=== PATIENT | female | born 2000 | race Caucasian/White ===

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

== ENCOUNTER 2019-02-25 20:13 | Emergency (ER) | payer OTHER ==
[2019-02-25 20:24] VITALS: RESP 18
[2019-02-25] MEDS ORDERED: KETOROLAC 30 MG/ML 1 ML VIAL IM STA (20:52)
[2019-02-25 21:10] LABS: Appearance,Urine Clear (Clear); Bilirubin,Urine Negative (Negative); Blood,Urine Moderate (Negative); Color,Urine Yellow; Glucose,Urine (UA) Negative (Negative); Ketones,Urine Negative (Negative); Leukocyte Esterase,Urine Negative (Negative); Mucus,Urine Many /hpf; Nitrite,Urine Negative (Negative); PH, Urine 5.5 (5.0-8.0); Protein,Urine Trace (Negative); RBC,Urine 19 /hpf (0-5); Specific Gravity,Urine 1.026 (1.001-1.035); Squamous Epithelial Cell,Urine <1 /hpf (0-4); Urobilinogen,Urine <2.0 mg/dL (<2.0); WBC,Urine 4 /hpf (0-5)
--- NOTE | 2019-02-25 21:38 | ED ---
General Adult HPI - General Chief complaint: ENT Stated complaint: Sore throat Time Seen by Provider: 02/25/19 20:32 Source: patient Mode of arrival: ambulatory Limitations: no limitations - History of Present Illness Initial comments: 18-year-old female patient presents to the emergency department today for evaluation of low back pain and sore throat. Patient states that she has been having increased low back pain over the last 2 weeks. Patient states it hurts to bend, walk, or sit for long periods. Patient states the pain is all across her low back. Patient states that she has had pain in the back in the past with . Patient denies any radiation of the pain down her legs. Denies any numbness or tingling to the lower extremities. Denies any saddle anesthesia or loss of bowel or bladder control. She denies any hematuria, dysuria, urinary frequency, urinary urgency. Denies any fever or chills. Denies abdominal pain with this. States that she did develop sore throat a couple of days ago. States that this morning she noticed that the right tonsil was enlarged and there was white exudate present. She denies any fever or chills with this. Reports painful swallowing but no difficulty. Denies trismus. Denies any nasal congestion or drainage. Denies cough. - Related Data Home Medications Medication Instructions Recorded Confirmed Hmx-[id number] Acid 1 cap PO DAILY 02/26/18 09/18/18 [-U Capsule (formulary)] Acetaminophen [Tylenol] 650 mg PO Q4H 09/08/18 09/18/18 Previous Rx's Medication Instructions Recorded Ibuprofen [Motrin] 600 mg PO Q6HR PRN #60 tab 09/19/18 Azithromycin [Zithromax] 500 mg PO DAILY 4 Days #4 tab 02/25/19 Naproxen [EC-Naprosyn] 500 mg PO BID PRN #30 tablet. 02/25/19 Allergies Allergy/AdvReac Type Severity Reaction Status Date / Time No Known Allergies Allergy Verified 02/25/19 20:24 Review of Systems ROS Statement: Those systems with pertinent positive or pertinent negative responses have been documented in the HPI. ROS Other: All systems not noted in ROS Statement are negative. Past Medical History Past Medical History: No Reported History History of Any Multi-Drug Resistant Organisms: None Reported Past Surgical History: No Surgical Hx Reported Additional Past Surgical History / Comment(s): wisdom teeth Past Anesthesia/Blood Transfusion Reactions: No Reported Reaction Additional Past Anesthesia/Blood Transfusion Reaction / Comment(s): none Past Psychological History: Anxiety Smoking Status: Current every day smoker Past Alcohol Use History: None Reported Past Drug Use History: None Reported - Past Family History Father Family Medical History: No Reported History Brother(s) Additional Family Medical History / Comment(s): pulmonary stenosis Sister(s) Family Medical History: No Reported History Additional Family Medical History / Comment(s): down syndrome General Exam Limitations: no limitations General appearance: alert, in no apparent distress, other (This is a well- developed, well-nourished adult female patient in no acute distress. Vital signs upon presentation are temperature 98.4F, pulse 89, respirations 18, blood pressure 122/69, pulse ox 99% on room air.) Eye exam: Present: normal appearance, PERRL, EOMI. Absent: scleral icterus, conjunctival injection, periorbital swelling ENT exam: Present: mucous membranes moist, TM's normal bilaterally. Absent: normal exam, normal oropharynx (Right tonsillar hypertrophy, exudate noted.) Respiratory exam: Present: normal lung sounds bilaterally. Absent: respiratory distress, wheezes, rales, rhonchi, stridor Cardiovascular Exam: Present: regular rate, normal rhythm, normal heart sounds. Absent: systolic murmur, diastolic murmur, rubs, gallop, clicks GI/Abdominal exam: Present: soft, normal bowel sounds. Absent: distended, tenderness, guarding, rebound, rigid Extremities exam: Present: normal inspection, full ROM, normal capillary refill, other (Skin to the lower extremities is pink, warm, and dry. Cap refills less than 3 seconds. Pedal and posttibial pulses are 2+ and equal bilaterally.). Absent: tenderness, pedal edema, joint swelling, calf tenderness Back exam: Present: normal inspection. Absent: vertebral tenderness Neurological exam: Present: alert, oriented X3, CN II-XII intact, other (Strength to the lower extremities is 5/5.) Psychiatric exam: Present: normal affect, normal mood Skin exam: Present: warm, dry, intact, normal color. Absent: rash Course Vital Signs 02/25/19 02/25/19 20:21 22:43 Temperature 98.4 F 98.2 F Pulse Rate 89 78 Respiratory 18 18 Rate Blood Pressure 122/69 107/78 O2 Sat by Pulse 99 100 Oximetry Medical Decision Making - Medical Decision Making 18-year-old female patient presents to the emergency department today for evaluation of low back pain and sore throat. Physical examination did reveal right tonsillar hypertrophy with exudate. Tender lymph nodes. Lower back examination is unremarkable. She is neurologically intact. No concerning symptoms for cauda equina. We did send heterophile which was negative, EBV panel was sent as well as symptoms started 2 days ago. Strep screen was negat andressa. We'll treat with azithromycin for tonsillitis. She is given naproxen for back pain. She does report improvement of both throat and back pain with administration of Toradol here in the department. She is instructed to follow- up with her primary care physician for recheck in 1-2 days. Return parameters were discussed in detail. She verbalizes understanding and agrees with this plan. - Lab Data Lab Results 02/25/19 02/25/19 02/25/19 Range/Units 20:50 20:50 20:50 Urine Color Yellow Urine Appearance Clear (Clear) Urine pH 5.5 (5.0-8.0) Ur Specific [place] 1.026 (1.001-1.035) Urine Protein Trace H (Negative) Urine Glucose (UA) Negative (Negative) Urine Ketones Negative (Negative) Urine Blood Moderate H (Negative) Urine Nitrite Negative (Negative) Urine Bilirubin Negative (Negative) Urine Urobilinogen <2.0 (<2.0) mg/dL Ur Leukocyte Esterase Negative (Negative) Urine RBC 19 H (0-5) /hpf Urine WBC 4 (0-5) /hpf Ur Squamous Epith Cells <1 (0-4) /hpf Urine Mucus Many H (None) /hpf Urine HCG, Qual Not Detected (Not Detectd) Heterophile Antibody (Negative) Group A Strep Rapid Negative (Negative) 02/25/19 Range/Units 22:15 Urine Color Urine Appearance (Clear) Urine pH (5.0-8.0) Ur Specific [place] (1.001-1.035) Urine Protein (Negative) Urine Glucose (UA) (Negative) Urine Ketones (Negative) Urine Blood (Negative) Urine Nitrite (Negative) Urine Bilirubin (Negative) Urine Urobilinogen (<2.0) mg/dL Ur Leukocyte Esterase (Negative) Urine RBC (0-5) /hpf Urine WBC (0-5) /hpf Ur Squamous Epith Cells (0-4) /hpf Urine Mucus (None) /hpf Urine HCG, Qual (Not Detectd) Heterophile Antibody Negative (Negative) Group A Strep Rapid (Negative) Disposition Clinical Impression: Pharyngitis, Low back pain Disposition: HOME SELF-CARE Condition: Good Instructions (If sedation given, give patient instructions): Pharyngitis (ED), Acute Low Back Pain (ED), Lower Back Exercises (ED) Additional Instructions: Apply warm moist heat to the low back, 20 minutes at a time. Do the exercises daily. Complete antibiotic prescription in full for throat. Follow up with your primary care physician for recheck in 1-2 days. Return to the emergency department immediately for any new, worsening, or concerning symptoms. Prescriptions: Naproxen [EC-Naprosyn] 500 mg PO BID PRN #30 tablet. PRN Reason: Pain Azithromycin [Zithromax] 500 mg PO DAILY 4 Days #4 tab Is patient prescribed a controlled substance at d/c from ED?: No Referrals: None,Stated [Primary Care Provider] - 1-2 days Time of Disposition: 22:13
[2019-02-25] MEDS ORDERED: AZITHROMYCIN 500 MG TAB PO STA (21:44)
[2019-02-25 22:46] VITALS: BP 107/78; PULSE 78; TEMP 98.2
[2019-02-26 11:47] LABS: EBV-EA (IgG) <0.2 AI; EBV-EBNA(IgG) >8.0 AI; EBV-VCA (IgG) >8.0 AI; EBV-VCA (IgM) <0.2 AI
== END 2019-02-25 22:43 | disposition home or self-care (01) ==
LOC: EC 20:13
DX: J02.9 Acute pharyngitis, unspecified (principal); M54.5 Low back pain; J35.1 Hypertrophy of tonsils; F17.200 Nicotine dependence, unspecified, uncomplicated
CPT/HCPCS: 99283; 96372; 36415; 86665 ×2; 86663; 86308; 81001; 81025; 86664; 87081; 87430; J1885

== ENCOUNTER 2019-11-19 16:06 | Emergency (ER) | payer OTHER ==
[2019-11-19 16:40] VITALS: TEMP 98.7
[2019-11-19] MEDS ORDERED: MECLIZINE 12.5 MG TAB PO STA (17:17)
[2019-11-19 17:28] LABS: Appearance,Urine Clear (Clear); Bacteria,Urine Rare /hpf; Bilirubin,Urine Negative (Negative); Blood,Urine Negative (Negative); Color,Urine Colorless; Glucose,Urine (UA) Negative (Negative); Ketones,Urine Negative (Negative); Leukocyte Esterase,Urine Moderate (Negative); Nitrite,Urine Negative (Negative); PH, Urine 7.5 (5.0-8.0); Protein,Urine Negative (Negative); Specific Gravity,Urine 1.004 (1.001-1.035); Squamous Epithelial Cell,Urine 1 /hpf (0-4); Urobilinogen,Urine <2.0 mg/dL (<2.0); WBC,Urine 3 /hpf (0-5)
--- NOTE | 2019-11-19 17:45 | ED ---
Dizziness HPI - General Chief Complaint: Dizziness Stated Complaint: dizziness Time Seen by Provider: 11/19/19 16:43 Source: patient Mode of arrival: ambulatory Limitations: no limitations - History of Present Illness Initial Comments: Patient is a 19-year-old female presenting to the emergency department with a chief complaint of dehydration and dizziness. Patient reports this occurred about 2 hours prior to arrival. Patient reports she works at [employer] and developed a gradual onset of dizziness where the room was spinning around her. States she also feels dehydrated. Patient denies any light headaches, visual changes, nausea vomiting chest pain or shortness of breath. Patient denies previous history of vertigo. - Related Data Home Medications Medication Instructions Recorded Confirmed Lvd-Asua-Uymdm Acid 1 cap PO DAILY 02/26/18 09/18/18 [-U Capsule (formulary)] Acetaminophen [Tylenol] 650 mg PO Q4H 09/08/18 09/18/18 Previous Rx's Medication Instructions Recorded Ibuprofen [Motrin] 600 mg PO Q6HR PRN #60 tab 09/19/18 Azithromycin [Zithromax] 500 mg PO DAILY 4 Days #4 tab 02/25/19 Naproxen [EC-Naprosyn] 500 mg PO BID PRN #30 tablet. 02/25/19 Meclizine [Antivert] 25 mg PO TID PRN #15 tab 11/19/19 Allergies Allergy/AdvReac Type Severity Reaction Status Date / Time morphine Allergy Unknown Verified 11/19/19 16:40 Review of Systems ROS Statement: Those systems with pertinent positive or pertinent negative responses have been documented in the HPI. ROS Other: All systems not noted in ROS Statement are negative. Past Medical History Past Medical History: No Reported History History of Any Multi-Drug Resistant Organisms: None Reported Past Surgical History: No Surgical Hx Reported Additional Past Surgical History / Comment(s): wisdom teeth Past Anesthesia/Blood Transfusion Reactions: No Reported Reaction Additional Past Anesthesia/Blood Transfusion Reaction / Comment(s): none Past Psychological History: Anxiety Smoking Status: Current every day smoker Past Alcohol Use History: None Reported Past Drug Use History: None Reported - Past Family History Father Family Medical History: No Reported History Brother(s) Additional Family Medical History / Comment(s): pulmonary stenosis Sister(s) Family Medical History: No Reported History Additional Family Medical History / Comment(s): down syndrome General Exam Limitations: no limitations General appearance: alert, in no apparent distress Head exam: Present: atraumatic, normocephalic, normal inspection Eye exam: Present: normal appearance, PERRL, EOMI, nystagmus (Lateral nystagmus) Pupils: Present: normal accommodation ENT exam: Present: normal exam, normal oropharynx, mucous membranes moist Neck exam: Present: normal inspection, full ROM Respiratory exam: Present: normal lung sounds bilaterally. Absent: respiratory distress, wheezes Cardiovascular Exam: Present: regular rate, normal rhythm, normal heart sounds External exam: Present: normal external exam, erythema Extremities exam: Present: normal inspection, full ROM Back exam: Present: normal inspection, full ROM Neurological exam: Present: alert, oriented X3 Psychiatric exam: Present: normal affect, normal mood Skin exam: Present: warm, dry, intact, normal color Course Vital Signs 11/19/19 11/19/19 16:37 18:18 Temperature 98.7 F Pulse Rate 74 54 L Respiratory 18 16 Rate Blood Pressure 122/77 116/72 O2 Sat by Pulse 100 100 Oximetry Medical Decision Making - Medical Decision Making patient is a 19-year-old female presenting to the emergency department with the chief complaint dehydration and dizziness. I performed the Calera-Hallpike maneuver which drastically increased her dizziness with slight nausea. EKG is unremarkable. UA is negative. Urine negative. I suspect the patient has vertigo. Patient was given 50 mg of Antivert with improvement in symptoms. Patient will be discharged with Antivert. She was advised to follow-up with her primary care. Return parameters thoroughly discussed the patient was understanding and agreeable. Case discussed with physician. - Lab Data Lab Results 11/19/19 11/19/19 11/19/19 Range/Units 17:07 17:07 18:32 POC Glucose (mg/dL) 77 (75-99) mg/dL POC Glu [employer] Kendra Melara Urine Color Colorless Urine Appearance Clear (Clear) Urine pH 7.5 (5.0-8.0) Ur Specific [place] 1.004 (1.001-1.035) Urine Protein Negative (Negative) Urine Glucose (UA) Negative (Negative) Urine Ketones Negative (Negative) Urine Blood Negative (Negative) Urine Nitrite Negative (Negative) Urine Bilirubin Negative (Negative) Urine Urobilinogen <2.0 (<2.0) mg/dL Ur Leukocyte Esterase Moderate H (Negative) Urine WBC 3 (0-5) /hpf Ur Squamous Epith Cells 1 (0-4) /hpf Urine Bacteria Rare H (None) /hpf Urine HCG, Qual Not Detected (Not Detectd) - EKG Data EKG Comments: Says arrhythmia Ventricular rate 66, WI 124, QRS 90, QTC 415. Disposition Clinical Impression: Dizziness, Vertigo Disposition: HOME SELF-CARE Condition: Stable Instructions (If sedation given, give patient instructions): Vertigo (DC) Additional Instructions: Take prescribed medication as directed. Follow-up with your primary care. Return to emergency department if symptoms worsen. Prescriptions: Meclizine [Antivert] 25 mg PO TID PRN #15 tab PRN Reason: Vertigo Is patient prescribed a controlled substance at d/c from ED?: No Referrals: None,Stated [Primary Care Provider] - 1-2 days Time of Disposition: 18:14
[2019-11-19 18:21] VITALS: BP 116/72; PULSE 54; RESP 16
[2019-11-19 18:47] LABS: Glucose,Whole Blood 77 mg/dL (75-99)
== END 2019-11-19 18:33 | disposition home or self-care (01) ==
LOC: EC 16:06
DX: R42 Dizziness and giddiness (principal); F17.200 Nicotine dependence, unspecified, uncomplicated; Z88.5 Allergy status to narcotic agent
CPT/HCPCS: 36415; 81001; 81025; 93005; 99284

== ENCOUNTER 2019-12-09 09:06 | Emergency (ER) | payer OTHER ==
[2019-12-09 09:11] VITALS: TEMP 98
[2019-12-09] MEDS ORDERED: SODIUM CHLORIDE 0.9% 1,000 ML IV STA (09:32)
[2019-12-09] MEDS ORDERED: SODIUM CHLORIDE 0.9% 500 ML 500 ML IV STA (09:32)
[2019-12-09] MEDS ORDERED: MECLIZINE 12.5 MG TAB PO STA (09:33)
[2019-12-09] MEDS ORDERED: ONDANSETRON 4 MG/2 ML VIAL IVP STA (09:33)
--- NOTE | 2019-12-09 09:37 | ED ---
General Adult HPI - General Chief complaint: Dizziness Stated complaint: syncope Time Seen by Provider: 12/09/19 09:14 Source: patient, RN notes reviewed Mode of arrival: wheelchair Limitations: no limitations - History of Present Illness Initial comments: This a 19-year-old female presents emergency Department chief complaint of nausea, dizziness. Patient states it started yesterday while she stood up getting out of her vehicle. She states she felt she has not passed out. She stumbled to the ground but did not strike her head. Patient has a history of vertigo in which she is received medication for. Patient does not have a current primary care physician. Denies any chest pain or sniffing shortness of breath no abdominal plain to the inside nausea. Patient denies fever, chills, URI symptoms. Patient denies taking any other current medications. - Related Data Home Medications Medication Instructions Recorded Confirmed Hzf-Mmxe-Sofbh Acid 1 cap PO DAILY 02/26/18 09/18/18 [-U Capsule (formulary)] Acetaminophen [Tylenol] 650 mg PO Q4H 09/08/18 09/18/18 Previous Rx's Medication Instructions Recorded Ibuprofen [Motrin] 600 mg PO Q6HR PRN #60 tab 09/19/18 Azithromycin [Zithromax] 500 mg PO DAILY 4 Days #4 tab 02/25/19 Naproxen [EC-Naprosyn] 500 mg PO BID PRN #30 tablet. 02/25/19 Meclizine [Antivert] 25 mg PO TID PRN #15 tab 11/19/19 Allergies Allergy/AdvReac Type Severity Reaction Status Date / Time morphine Allergy Unknown Verified 12/09/19 09:11 Review of Systems ROS Statement: Those systems with pertinent positive or pertinent negative responses have been documented in the HPI. ROS Other: All systems not noted in ROS Statement are negative. Past Medical History Past Medical History: No Reported History History of Any Multi-Drug Resistant Organisms: None Reported Past Surgical History: No Surgical Hx Reported Additional Past Surgical History / Comment(s): wisdom teeth Past Anesthesia/Blood Transfusion Reactions: No Reported Reaction Additional Past Anesthesia/Blood Transfusion Reaction / Comment(s): none Past Psychological History: Anxiety Smoking Status: Former smoker Past Alcohol Use History: None Reported Past Drug Use History: None Reported - Past Family History Father Family Medical History: No Reported History Brother(s) Additional Family Medical History / Comment(s): pulmonary stenosis Sister(s) Family Medical History: No Reported History Additional Family Medical History / Comment(s): down syndrome General Exam Limitations: no limitations General appearance: alert, in no apparent distress Head exam: Present: atraumatic, normocephalic, normal inspection Eye exam: Present: normal appearance, PERRL, EOMI. Absent: scleral icterus, conjunctival injection, periorbital swelling ENT exam: Present: normal exam, normal oropharynx, mucous membranes moist Neck exam: Present: normal inspection, full ROM. Absent: tenderness, meningismus, lymphadenopathy Respiratory exam: Present: normal lung sounds bilaterally. Absent: respiratory distress, wheezes, rales, rhonchi, stridor Cardiovascular Exam: Present: normal rhythm, bradycardia, normal heart sounds. Absent: systolic murmur, diastolic murmur, rubs, gallop, clicks GI/Abdominal exam: Present: soft, normal bowel sounds. Absent: distended, tenderness, guarding, rebound, rigid Neurological exam: Present: alert, oriented X3, CN II-XII intact, reflexes normal. Absent: motor sensory deficit Skin exam: Present: warm, dry, intact, normal color. Absent: rash Course Vital Signs 12/09/19 09:09 Temperature 98.0 F Pulse Rate 58 L Respiratory 18 Rate Blood Pressure 107/70 O2 Sat by Pulse 100 Oximetry EKG Findings - EKG Comments: EKG Findings:: EKG performed at 9:25 sinus bradycardia rate of 56 GA 128 QRS 88 QT status QTC 4:30/422 - EKG Results: EKG: interpreted by JEN Medical Decision Making - Medical Decision Making 19-year-old female presented for dizziness she has chronic issues with this. Patient was hydrated, given Antivert feels improved. Labs unremarkable. Patient be discharged. - Lab Data Result diagrams: 12/09/19 09:45 12/09/19 09:45 Lab Results 12/09/19 12/09/19 12/09/19 Range/Units 09:45 09:45 09:45 WBC 4.8 (4.0-11.0) k/uL RBC 4.26 (3.80-5.40) m/uL Hgb 11.7 (11.4-16.0) gm/dL Hct 37.4 (34.0-46.0) % MCV 87.7 (80.0-100.0) fL MCH 27.4 (25.0-35.0) pg MCHC 31.2 (31.0-37.0) g/dL RDW 14.9 (11.5-15.5) % Plt Count 181 (150-450) k/uL Neutrophils % 55 % Lymphocytes % 31 % Monocytes % 7 % Eosinophils % 1 % Basophils % 1 % Neutrophils # 2.7 (1.3-7.7) k/uL Lymphocytes # 1.5 (1.0-4.8) k/uL Monocytes # 0.4 (0-1.0) k/uL Eosinophils # 0.1 (0-0.7) k/uL Basophils # 0.1 (0-0.2) k/uL Hypochromasia Slight Sodium (137-145) mmol/L Potassium (3.5-5.1) mmol/L Chloride (98-107) mmol/L Carbon Dioxide (22-30) mmol/L Anion Gap mmol/L BUN (7-17) mg/dL Creatinine (0.52-1.04) mg/dL Est GFR (CKD-EPI)AfAm (>60 ml/min/1.73 sqM) Est GFR (CKD-EPI)NonAf (>60 ml/min/1.73 sqM) Glucose (74-99) mg/dL Calcium (8.4-10.2) mg/dL Total Bilirubin (0.2-1.3) mg/dL AST (14-36) U/L ALT (4-34) U/L Alkaline Phosphatase (38-126) U/L Total Protein (6.3-8.2) g/dL Albumin (3.5-5.0) g/dL Urine Color Nicole Urine Appearance Clear (Clear) Urine pH 6.0 (5.0-8.0) Ur Specific [place] 1.030 (1.001-1.035) Urine Protein 1+ H (Negative) Urine Glucose (UA) Negative (Negative) Urine Ketones Negative (Negative) Urine Blood Negative (Negative) Urine Nitrite Negative (Negative) Urine Bilirubin 1+ H (Negative) Urine Urobilinogen 2.0 (<2.0) mg/dL Ur Leukocyte Esterase Negative (Negative) Urine RBC 1 (0-5) /hpf Urine WBC 3 (0-5) /hpf Ur Squamous Epith Cells 7 H (0-4) /hpf Urine Mucus Many H (None) /hpf Urine HCG, Qual Not Detected (Not Detectd) 12/09/19 Range/Units 09:45 WBC (4.0-11.0) k/uL RBC (3.80-5.40) m/uL Hgb (11.4-16.0) gm/dL Hct (34.0-46.0) % MCV (80.0-100.0) fL MCH (25.0-35.0) pg MCHC (31.0-37.0) g/dL RDW (11.5-15.5) % Plt Count (150-450) k/uL Neutrophils % % Lymphocytes % % Monocytes % % Eosinophils % % Basophils % % Neutrophils # (1.3-7.7) k/uL Lymphocytes # (1.0-4.8) k/uL Monocytes # (0-1.0) k/uL Eosinophils # (0-0.7) k/uL Basophils # (0-0.2) k/uL Hypochromasia Sodium 139 (137-145) mmol/L Potassium 4.1 (3.5-5.1) mmol/L Chloride 108 H (98-107) mmol/L Carbon Dioxide 27 (22-30) mmol/L Anion Gap 4 mmol/L BUN 15 (7-17) mg/dL Creatinine 0.59 (0.52-1.04) mg/dL Est GFR (CKD-EPI)AfAm >90 (>60 ml/min/1.73 sqM) Est GFR (CKD-EPI)NonAf >90 (>60 ml/min/1.73 sqM) Glucose 94 (74-99) mg/dL Calcium 9.2 (8.4-10.2) mg/dL Total Bilirubin 0.2 (0.2-1.3) mg/dL AST 17 (14-36) U/L ALT 9 (4-34) U/L Alkaline Phosphatase 71 (38-126) U/L Total Protein 6.5 (6.3-8.2) g/dL Albumin 3.9 (3.5-5.0) g/dL Urine Color Urine Appearance (Clear) Urine pH (5.0-8.0) Ur Specific [place] (1.001-1.035) Urine Protein (Negative) Urine Glucose (UA) (Negative) Urine Ketones (Negative) Urine Blood (Negative) Urine Nitrite (Negative) Urine Bilirubin (Negative) Urine Urobilinogen (<2.0) mg/dL Ur Leukocyte Esterase (Negative) Urine RBC (0-5) /hpf Urine WBC (0-5) /hpf Ur Squamous Epith Cells (0-4) /hpf Urine Mucus (None) /hpf Urine HCG, Qual (Not Detectd) Disposition Clinical Impression: Near syncope, Dizziness Disposition: HOME SELF-CARE Condition: Stable Instructions (If sedation given, give patient instructions): Dizziness (ED) Additional Instructions: Please return to the Emergency Department if symptoms worsen or any other concerns. Is patient prescribed a controlled substance at d/c from ED?: No Referrals: None,Stated [Primary Care Provider] - 1-2 days Time of Disposition: 10:28
[2019-12-09 10:04] LABS: Basophils # (A) 0.1 k/uL (0-0.2); Basophils % (A) 1 %; Eosinophils # (A) 0.1 k/uL (0-0.7); Eosinophils % (A) 1 %; HCT 37.4 % (34.0-46.0); HGB 11.7 gm/dL (11.4-16.0); Hypochromasia Slight; Lymphocytes # (A) 1.5 k/uL (1.0-4.8); Lymphocytes % (A) 31 %; MCH 27.4 pg (25.0-35.0); MCHC 31.2 g/dL (31.0-37.0); MCV 87.7 fL (80.0-100.0); Mean Platelet Volume 9.9; Monocytes # (A) 0.4 k/uL (0-1.0); Monocytes % (A) 7 %; Neutrophils # (A) 2.7 k/uL (1.3-7.7); Neutrophils % (A) 55 %; Platelet Count 181 k/uL (150-450); RBC 4.26 m/uL (3.80-5.40); RDW 14.9 % (11.5-15.5); WBC 4.8 k/uL (4.0-11.0)
[2019-12-09 10:13] LABS: Mucus,Urine Many /hpf; RBC,Urine 1 /hpf (0-5); Squamous Epithelial Cell,Urine 7 /hpf (0-4); WBC,Urine 3 /hpf (0-5)
[2019-12-09 10:14] LABS: Appearance,Urine Clear (Clear); Color,Urine Amber
[2019-12-09 10:15] LABS: Bilirubin,Urine 1+ (Negative); Blood,Urine Negative (Negative); Glucose,Urine (UA) Negative (Negative); Ketones,Urine Negative (Negative); Leukocyte Esterase,Urine Negative (Negative); Nitrite,Urine Negative (Negative); Protein,Urine 1+ (Negative)
[2019-12-09 10:17] LABS: ALT 9 U/L (4-34); AST 17 U/L (14-36); African American GFR (CKD) >90 (>60 ml/min/1.73 sqM); Albumin 3.9 g/dL (3.5-5.0); Alkaline Phosphatase 71 U/L (38-126); Anion Gap 4 mmol/L; Blood Urea Nitrogen 15 mg/dL (7-17); Calcium 9.2 mg/dL (8.4-10.2); Carbon Dioxide 27 mmol/L (22-30); Chloride 108 mmol/L (98-107); Glucose 94 mg/dL (74-99); Non-African American GFR(CKD) >90 (>60 ml/min/1.73 sqM); Potassium 4.1 mmol/L (3.5-5.1); Sodium 139 mmol/L (137-145); Total Bilirubin 0.2 mg/dL (0.2-1.3); Total Protein 6.5 g/dL (6.3-8.2)
[2019-12-09 10:51] VITALS: BP 104/58; PULSE 63; RESP 16
== END 2019-12-09 10:45 | disposition home or self-care (01) ==
LOC: EC 09:06
DX: R42 Dizziness and giddiness (principal); R55 Syncope and collapse; R11.0 Nausea; Z87.891 Personal history of nicotine dependence; Z88.5 Allergy status to narcotic agent
CPT/HCPCS: 36415; 93005; 80053; 85025; 81001; 81025; 99284; 96374; 96361; J2405

== ENCOUNTER 2020-02-07 22:18 | Emergency (ER) | payer OTHER ==
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
[2020-02-07] MEDS ORDERED: KETOROLAC 15 MG/ML 1 ML VIAL IVP STA (22:34)
[2020-02-07 22:53] LABS: Basophils # (A) 0.1 k/uL (0-0.2); Basophils % (A) 1 %; Eosinophils # (A) 0.1 k/uL (0-0.7); Eosinophils % (A) 1 %; HCT 40.5 % (34.0-46.0); HGB 12.7 gm/dL (11.4-16.0); Hypochromasia Slight; Lymphocytes # (A) 2.4 k/uL (1.0-4.8); Lymphocytes % (A) 32 %; MCH 27.2 pg (25.0-35.0); MCHC 31.3 g/dL (31.0-37.0); MCV 86.9 fL (80.0-100.0); Mean Platelet Volume 11.3; Monocytes # (A) 0.5 k/uL (0-1.0); Monocytes % (A) 6 %; Neutrophils # (A) 4.3 k/uL (1.3-7.7); Neutrophils % (A) 58 %; Platelet Count 196 k/uL (150-450); RBC 4.66 m/uL (3.80-5.40); RDW 14.9 % (11.5-15.5); WBC 7.5 k/uL (4.0-11.0)
[2020-02-07 23:01] LABS: ALT 12 U/L (4-34); AST 48 U/L (14-36); African American GFR (CKD) >90 (>60 ml/min/1.73 sqM); Albumin 4.6 g/dL (3.5-5.0); Alcohol <10 mg/dL; Alkaline Phosphatase 54 U/L (38-126); Anion Gap 5 mmol/L; Blood Urea Nitrogen 11 mg/dL (7-17); Calcium 9.4 mg/dL (8.4-10.2); Carbon Dioxide 24 mmol/L (22-30); Chloride 108 mmol/L (98-107); Glucose 103 mg/dL (74-99); Non-African American GFR(CKD) >90 (>60 ml/min/1.73 sqM); Sodium 137 mmol/L (137-145); Total Bilirubin 1.3 mg/dL (0.2-1.3); Total Protein 7.1 g/dL (6.3-8.2)
[2020-02-07 23:03] LABS: Potassium 5.3 mmol/L (3.5-5.1)
[2020-02-07] MEDS ORDERED: HYDROcodone/APAP 5-325MG 1 EACH TAB PO STA (23:17)
[2020-02-07 23:46] LABS: Prothrombin Time 10.7 sec (9.0-12.0)
--- NOTE | 2020-02-07 23:46 | CT ---
EXAMINATION TYPE: CT brain richardsonine wo con DATE OF EXAM: 02/07/2020 COMPARISON: None HISTORY: PAIN CT DLP: 761.5 mGycm Automated exposure control for dose reduction was used. Ventricles and sulci appear normal. There is no mass effect nor midline shift. There is no sign of in tracranial hemorrhage. The calvarium is intact. There is no evidence of cerebral edema. Skull base is intact. There is normal aeration of the mastoid sinuses. Cervical vertebra have normal spacing and alignment. Posterior elements are intact. Facet joints are intact. There is no compression fracture. Prevertebral soft tissues appear normal. I see no bony dest ructive process. IMPRESSION: Normal CT scan of the cervical spine. Normal CT scan of the brain.
[2020-02-07 23:47] LABS: Partial Thromboplastin Time 21.5 sec (22.0-30.0)
--- NOTE | 2020-02-07 23:48 | CT ---
EXAMINATION TYPE: CT facial bones wo con DATE OF EXAM: 02/07/2020 COMPARISON: None HISTORY: PAIN Trauma CT DLP: 316.7 mGycm Automated exposure control for dose reduction was used. Multiple axial sections were obtained from the bottom of the mandible to the top of the frontal sinus es without contrast. There is normal aeration of the paranasal sinuses. Nasal bone is intact. Orbital margins are intact. There is no retro-orbital mass. There is no evidence of a blowout fracture. Maxilla is intact. Zygomatic arches appear normal. The mandibular ring is intact. Temporomandibular joints appear normal . Mastoid sinuses appear normal. The globes are symmetric. IMPRESSION: Normal CT scan of the facial bones.
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
--- NOTE | 2020-02-07 23:50 | XR ---
EXAMINATION TYPE: XR wrist complete RT DATE OF EXAM: 02/07/2020 COMPARISON: NONE HISTORY: Wrist pain TECHNIQUE: 4 views FINDINGS: Carpal bones are intact. Metacarpals appear normal. I see no fracture nor dislocation. Scap hoid is intact. Joint spaces are normal. IMPRESSION: Normal right wrist.
[2020-02-08] MEDS ORDERED: ACET/COD 300 MG/30 MG STARTER PACK 6 TAB BTL PO STA (00:18)
[2020-02-08 01:23] VITALS: BP 102/70; PULSE 69; RESP 16; TEMP 98.6
== END 2020-02-08 01:20 | disposition home or self-care (01) ==
LOC: EC 22:18
DX: S00.83XA Contusion of other part of head, initial encounter (principal); Z88.5 Allergy status to narcotic agent; Z87.891 Personal history of nicotine dependence; V43.52XA Car driver injured in collision with other type car in traffic accident, initial encounter; W22.11XA Striking against or struck by driver side automobile airbag, initial encounter; Y92.410 Unspecified street and highway as the place of occurrence of the external cause
CPT/HCPCS: 36415; 93005; 86900; 86901; 80053; 83605; 84484; 85025; 85610; 85730; 86850; 80320; 73110; 71045; 72125; 70486; 70450; 99285; 96374; J1885

== ENCOUNTER 2020-05-29 13:35 | Emergency (ER) | payer OTHER ==
[2020-05-29] MEDS ORDERED: SODIUM CHLORIDE 0.9% 1,000 ML IV STA (14:19)
[2020-05-29] MEDS ORDERED: ONDANSETRON 4 MG/2 ML VIAL IVP STA (14:19)
--- NOTE | 2020-05-29 14:42 | ED ---
SOB HPI - General Chief Complaint: Shortness of Breath Stated Complaint: COVID+,SOB,ABD pain Time Seen by Provider: 05/29/20 14:03 Source: patient Mode of arrival: ambulatory Limitations: no limitations - History of Present Illness Initial Comments: Patient is a 19-year-old female presenting to the emergency Department with complaints of shortness of breath, nausea, vomiting, headache for about 3 days. Patient states she was diagnosed with Covid 3 days ago, mostly people in her household are also sick with similar symptoms. Patient states she feels like she cannot get a deep breath in, she denies history of asthma. She denies being a smoker. Patient states the last 2 days she is also having lots of nausea and vomiting, unable to eat or drink anything. She is also been dealing with a headache for the last day and a half. She states it's mostly in the front, and she has some sinus pressure as well. She states she did not take any Tylenol or Motrin yet today. She denies being at this time. She has been taking DayQuil to help with her symptoms. She denies having a fever today, she did have a fever yesterday. She denies any abdominal pain, just occasional cramping from the nausea. She denies any diarrhea. Patient has no further complaints at this time. Upon arrival to the ER, her vitals are stable. - Related Data Previous Rx's Medication Instructions Recorded Ibuprofen [Motrin] 600 mg PO Q8HR PRN #20 tab 02/08/20 Albuterol Inhaler [Ventolin Hfa 1 puff INHALATION RT-QID PRN #1 05/29/20 Inhaler] puff Allergies Allergy/AdvReac Type Severity Reaction Status Date / Time morphine Allergy Unknown Verified 05/29/20 13:51 Review of Systems ROS Statement: Those systems with pertinent positive or pertinent negative responses have been documented in the HPI. ROS Other: All systems not noted in ROS Statement are negative. Past Medical History Past Medical History: No Reported History History of Any Multi-Drug Resistant Organisms: None Reported Past Surgical History: No Surgical Hx Reported Additional Past Surgical History / Comment(s): wisdom teeth Past Anesthesia/Blood Transfusion Reactions: No Reported Reaction Additional Past Anesthesia/Blood Transfusion Reaction / Comment(s): none Past Psychological History: No Psychological Hx Reported Smoking Status: Former smoker Past Alcohol Use History: None Reported Past Drug Use History: None Reported - Past Family History Father Family Medical History: No Reported History Brother(s) Additional Family Medical History / Comment(s): pulmonary stenosis Sister(s) Family Medical History: No Reported History Additional Family Medical History / Comment(s): down syndrome General Exam - General Exam Comments Initial Comments: GENERAL: Patient is well-developed and well-nourished. Patient is nontoxic and in no acute distress. HEAD: Atraumatic, normocephalic. EYES: Pupils equal round and reactive to light, extraocular movements intact, sclera anicteric, conjunctiva are normal. Eyelids were unremarkable. ENT: TMs normal, nares patent, oropharynx clear without exudates. Dry mucous membranes. NECK: Normal range of motion, supple without lymphadenopathy or JVD. LUNGS: Unlabored respirations. Breath sounds clear to auscultation bilaterally and equal. No wheezes rales or rhonchi. HEART: Regular rate and rhythm without murmurs, rubs or gallops. ABDOMEN: Soft, nontender, normoactive bowel sounds. No guarding, no rebound. No masses appreciated. : Deferred MUSCULOSKELETAL: Normal extremities with adequate strength and normal range of motion, no pitting or edema. No clubbing or cyanosis. NEUROLOGICAL: Patient is alert and oriented x 3. Motor and sensory are also intact. Cranial nerves II through XII grossly intact. Symmetrical smile. Normal speech, normal gait. PSYCH: Normal mood, normal affect. SKIN: Warm, Dry, normal turgor, no rashes or lesions noted. Limitations: no limitations Course Vital Signs 05/29/20 05/29/20 13:47 14:45 Temperature 98.7 F Pulse Rate 68 Respiratory 18 20 Rate Blood Pressure 124/80 O2 Sat by Pulse 99 Oximetry Medical Decision Making - Medical Decision Making Patient is a 19-year-old female here with shortness of breath, nausea and vomiting as well as a headache for the past 3 days. She tested positive for Covid 3 days ago, most members of her household also are positive. Her vital signs are stable upon arrival, she is afebrile. Patient appears very dry during exam, otherwise a normal exam. Chest x-ray shows no acute process. They give patient a liter of fluids, Zofran, she is reporting improvement. We'll send her home with a starter pack of Zofran as well as a prescription for an inhaler. I discussed with patient this is a virus and he needs to finish running its course. Continue to drink lots of fluids, Tylenol or Motrin as needed for discomfort. Patient is in agreement with this plan of care. She is stable for discharge. Return parameters were discussed with the patient she verbalized understanding. Case discussed with Dr. oscar. Disposition Clinical Impression: COVID-19, Nausea & vomiting, Dehydration Disposition: HOME SELF-CARE Condition: Stable Instructions (If sedation given, give patient instructions): Viral Syndrome (ED) Additional Instructions: Please return to the Emergency Department if symptoms worsen or any other concerns. May continue with Tylenol or Motrin for body aches, fever. May use inhaler first dose of breath and/or cough. Use Zofran for the nausea. Follow-up with PCP. Prescriptions: Albuterol Inhaler [Ventolin Hfa Inhaler] 1 puff INHALATION RT-QID PRN #1 puff PRN Reason: Shortness Of Breath Is patient prescribed a controlled substance at d/c from ED?: No Referrals: None,Stated [Primary Care Provider] - 1-2 days
[2020-05-29 15:04] VITALS: RESP 20
--- NOTE | 2020-05-29 15:14 | XR ---
EXAMINATION TYPE: XR chest 1V DATE OF EXAM: 05/29/2020 COMPARISON: 02/07/2020 INDICATION: Covid tip seen TECHNIQUE: Single frontal view of the chest is obtained. FINDINGS: The heart size is normal. The pulmonary vasculature is normal. The lungs are clear. IMPRESSION: 1. No acute pulmonary process.
[2020-05-29] MEDS ORDERED: ONDANSETRON 4 MG ODT STARTER PACK 2 TAB BTL PO STA (15:37)
[2020-05-29 15:44] VITALS: BP 128/60; PULSE 58; TEMP 98.1
== END 2020-05-29 15:51 | disposition home or self-care (01) ==
LOC: EC 13:35
DX: U07.1 COVID-19 (principal); E86.0 Dehydration; Z88.5 Allergy status to narcotic agent; Z87.891 Personal history of nicotine dependence
CPT/HCPCS: 71045; 96361; 96374; 99284

== ENCOUNTER → 2020-09-09 | Outpatient (CLI) | payer OTHER | END | disposition home or self-care (01) | LOC: LABWHC1 15:12 | PROVIDERS: ATTEND Obstetrics & Gynecology | DX: N92.6 Irregular menstruation, unspecified (principal) | CPT/HCPCS: 36415; 84702 ==

== ENCOUNTER 2020-11-03 21:30 | Emergency (ER) | payer OTHER ==
[2020-11-03 21:43] VITALS: RESP 16
[2020-11-03] MEDS ORDERED: diphenhydrAMINE 50 MG/ML 1 ML VIAL IVP STA (22:27)
[2020-11-03] MEDS ORDERED: SODIUM CHLORIDE 0.9% 1,000 ML IV STA (22:27)
[2020-11-03] MEDS ORDERED: METOCLOPRAMIDE 5 MG/ML 2 ML VIAL IVP STA (22:27)
[2020-11-03 23:02] LABS: Basophils % (A) 0 %; Eosinophils # (A) 0.1 k/uL (0-0.7); Eosinophils % (A) 1 %; HCT 38.7 % (34.0-46.0); HGB 13.2 gm/dL (11.4-16.0); Lymphocytes # (A) 1.2 k/uL (1.0-4.8); Lymphocytes % (A) 14 %; MCH 29.8 pg (25.0-35.0); MCV 87.7 fL (80.0-100.0); Mean Platelet Volume 9.7; Monocytes # (A) 0.3 k/uL (0-1.0); Monocytes % (A) 4 %; Neutrophils # (A) 7.4 k/uL (1.3-7.7); Neutrophils % (A) 81 %; Platelet Count 168 k/uL (150-450); RBC 4.41 m/uL (3.80-5.40); RDW 13.3 % (11.5-15.5); WBC 9.1 k/uL (3.8-10.6)
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
[2020-11-03 23:18] LABS: ALT 11 U/L (4-34); AST 23 U/L (14-36); African American GFR (CKD) >90 (>60 ml/min/1.73 sqM); Albumin 4.2 g/dL (3.5-5.0); Alkaline Phosphatase 71 U/L (38-126); Anion Gap 9 mmol/L; Blood Urea Nitrogen 9 mg/dL (7-17); Calcium 9.8 mg/dL (8.4-10.2); Carbon Dioxide 20 mmol/L (22-30); Chloride 108 mmol/L (98-107); Glucose 88 mg/dL (74-99); Lipase 46 U/L (23-300); Non-African American GFR(CKD) >90 (>60 ml/min/1.73 sqM); Potassium 4.2 mmol/L (3.5-5.1); Sodium 137 mmol/L (137-145); Total Bilirubin 0.8 mg/dL (0.2-1.3); Total Protein 6.8 g/dL (6.3-8.2)
[2020-11-03 23:29] LABS: Appearance,Urine Clear (Clear); Bacteria,Urine Rare /hpf; Bilirubin,Urine Negative (Negative); Blood,Urine Negative (Negative); Color,Urine Colorless; Glucose,Urine (UA) Negative (Negative); Ketones,Urine Negative (Negative); Leukocyte Esterase,Urine Moderate (Negative); Nitrite,Urine Negative (Negative); PH, Urine 6.5 (5.0-8.0); Protein,Urine Negative (Negative); RBC,Urine 1 /hpf (0-5); Specific Gravity,Urine 1.004 (1.001-1.035); Squamous Epithelial Cell,Urine 2 /hpf (0-4); Urobilinogen,Urine <2.0 mg/dL (<2.0); WBC,Urine 14 /hpf (0-5)
[2020-11-03 23:34] LABS: HCG,Quantitative Serum 1511.9 mIU/mL
--- NOTE | 2020-11-04 01:56 | ED ---
General Adult HPI - General Chief complaint: Nausea/Vomiting/Diarrhea Stated complaint: Dizzy,toe pain,Poss preg Time Seen by Provider: 11/03/20 21:59 Source: patient Mode of arrival: ambulatory Limitations: no limitations - History of Present Illness Initial comments: 20-year-old female patient presents to the emergency department today for evaluation of right toe injury. Patient states that she was moving a piece of furniture and injured her toe during the move. States she did pull her nail up. She also reports nausea and vomiting with lower abdominal cramping. States that she did have a positive test at home. Last period was 10/03. She is G4, P2, A1. States she did have some mild spotting yesterday without did resolve. Denies any back pain. Denies dizziness or weakness. Denies any hematuria, dysuria, urinary frequency, urinary urgency. Denies taking any medication for her symptoms. She has not yet seen [facility] TECHNICIAN or had ultrasound. Patient denies any recent rash, fever, chills, cough, shortness of breath, chest pain, diarrhea, constipation, numbness, tingling, dizziness, weakness, headache, visual changes, or any other complaints. - Related Data Previous Rx's Medication Instructions Recorded Albuterol Inhaler [Ventolin Hfa 1 puff INHALATION RT-QID PRN #1 05/29/20 Inhaler] puff Cephalexin [Keflex] 500 mg PO Q6H #28 cap 11/04/20 Metoclopramide [Reglan] 10 mg PO Q8H PRN #10 tab 11/04/20 Allergies Allergy/AdvReac Type Severity Reaction Status Date / Time morphine Allergy Unknown Verified 11/03/20 22:13 Review of Systems ROS Statement: Those systems with pertinent positive or pertinent negative responses have been documented in the HPI. ROS Other: All systems not noted in ROS Statement are negative. Past Medical History Past Medical History: No Reported History History of Any Multi-Drug Resistant Organisms: None Reported Past Surgical History: No Surgical Hx Reported Additional Past Surgical History / Comment(s): wisdom teeth Past Anesthesia/Blood Transfusion Reactions: No Reported Reaction Additional Past Anesthesia/Blood Transfusion Reaction / Comment(s): none Past Psychological History: No Psychological Hx Reported Smoking Status: Former smoker Past Alcohol Use History: None Reported Past Drug Use History: None Reported - Past Family History Father Family Medical History: No Reported History Brother(s) Additional Family Medical History / Comment(s): pulmonary stenosis Sister(s) Family Medical History: No Reported History Additional Family Medical History / Comment(s): down syndrome General Exam Limitations: no limitations General appearance: alert, in no apparent distress, other (Physical well- developed, well-nourished adult female patient in no acute distress. Vital signs upon presentation temperature 98.1F, pulse 66, respirations 16, blood pre ssure 106/58, pulse ox 99% on room air.) Eye exam: Present: normal appearance, PERRL, EOMI. Absent: scleral icterus, conjunctival injection, periorbital swelling ENT exam: Present: normal exam, normal oropharynx, mucous membranes moist Respiratory exam: Present: normal lung sounds bilaterally. Absent: respiratory distress, wheezes, rales, rhonchi, stridor Cardiovascular Exam: Present: regular rate, normal rhythm, normal heart sounds. Absent: systolic murmur, diastolic murmur, rubs, gallop, clicks GI/Abdominal exam: Present: soft, tenderness (suprpubic), normal bowel sounds. Absent: distended, guarding, rebound, rigid Neurological exam: Present: alert, oriented X3, CN II-XII intact Psychiatric exam: Present: normal affect, normal mood Skin exam: Present: warm, dry, intact, normal color. Absent: rash Course Vital Signs 11/03/20 11/04/20 21:39 02:36 Temperature 98.1 F 98.0 F Pulse Rate 66 70 Respiratory 16 16 Rate Blood Pressure 106/58 112/61 O2 Sat by Pulse 99 98 Oximetry Medical Decision Making - Medical Decision Making 20-year-old female patient presents to the emergency department today for evaluation of right great toe injury. Patient also reported nausea and vomiting with mild cramping to the suprapubic region. Did have positive test at home. Last menstrual period was 10/03/2020. She did have spotting yesterday. Physical examination did reveal mild tenderness over the suprapubic region. There was bleeding noted from the right great toe nailbed. Labs reviewed and did reveal hCG level 1500. Ultrasound was obtained and showed a ti ny intrauterine gestational sac. There was a cystic structure on the right ovary that could be possible ectopic. I did discuss findings and results with the patient. She is given lab slip to have repeat hCG level drawn in 2 days. She is instructed to call OBGYN for appointment in the morning. Return parameters are discussed in detail. She verbalizes understanding and agrees with this plan. My attending is Dr. Boone. - Lab Data Result diagrams: 11/03/20 22:46 11/03/20 22:46 Lab Results 11/03/20 11/03/20 11/03/20 Range/Units 22:46 22:46 22:46 WBC 9.1 (3.8-10.6) k/uL RBC 4.41 (3.80-5.40) m/uL Hgb 13.2 (11.4-16.0) gm/dL Hct 38.7 (34.0-46.0) % MCV 87.7 (80.0-100.0) fL MCH 29.8 (25.0-35.0) pg MCHC 34.0 (31.0-37.0) g/dL RDW 13.3 (11.5-15.5) % Plt Count 168 (150-450) k/uL MPV 9.7 Neutrophils % 81 % Lymphocytes % 14 % Monocytes % 4 % Eosinophils % 1 % Basophils % 0 % Neutrophils # 7.4 (1.3-7.7) k/uL Lymphocytes # 1.2 (1.0-4.8) k/uL Monocytes # 0.3 (0-1.0) k/uL Eosinophils # 0.1 (0-0.7) k/uL Basophils # 0.0 (0-0.2) k/uL Sodium 137 (137-145) mmol/L Potassium 4.2 (3.5-5.1) mmol/L Chloride 108 H (98-107) mmol/L Carbon Dioxide 20 L (22-30) mmol/L Anion Gap 9 mmol/L BUN 9 (7-17) mg/dL Creatinine 0.47 L (0.52-1.04) mg/dL Est GFR (CKD-EPI)AfAm >90 (>60 ml/min/1.73 sqM) Est GFR (CKD-EPI)NonAf >90 (>60 ml/min/1.73 sqM) Glucose 88 (74-99) mg/dL Calcium 9.8 (8.4-10.2) mg/dL Total Bilirubin 0.8 (0.2-1.3) mg/dL AST 23 (14-36) U/L ALT 11 (4-34) U/L Alkaline Phosphatase 71 (38-126) U/L Total Protein 6.8 (6.3-8.2) g/dL Albumin 4.2 (3.5-5.0) g/dL Lipase 46 (23-300) U/L HCG, Quant 1511.9 mIU/mL Urine Color Colorless Urine Appearance Clear (Clear) Urine pH 6.5 (5.0-8.0) Ur Specific [place] 1.004 (1.001-1.035) Urine Protein Negative (Negative) Urine Glucose (UA) Negative (Negative) Urine Ketones Negative (Negative) Urine Blood Negative (Negative) Urine Nitrite Negative (Negative) Urine Bilirubin Negative (Negative) Urine Urobilinogen <2.0 (<2.0) mg/dL Ur Leukocyte Esterase Moderate H (Negative) Urine RBC 1 (0-5) /hpf Urine WBC 14 H (0-5) /hpf Ur Squamous Epith Cells 2 (0-4) /hpf Urine Bacteria Rare H (None) /hpf - Radiology Data Radiology results: report reviewed, image reviewed 3 views of the right great toe were obtained. Report was reviewed in its entirety. Impression by Dr. Simpson shows negative right big toe exam. Ultrasound obtained. Report reviewed in its entirety. Impression by Dr. Guzman shows small intrauterine saclike structure may be early gestational sac out of range for dating. Overall differential diagnosis includes early IUP, spontaneous , nonvisualized ectopic . Ovaries are not clearly visualized. 3.6 cm right adnexal lesion with 2.5 cm cystic component, and a separate adjacent 2.5 cm heterogenous/echogenic structure. These both may be part of the right ovary, however not clearly delineated. Ectopic is not excluded. Consider follow-up. Disposition Clinical Impression: Early stage of , Urinary tract infection Disposition: HOME SELF-CARE Condition: Good Instructions (If sedation given, give patient instructions): (ED), Acute Nausea and Vomiting (ED), Urinary Tract Infection in (ED) Additional Instructions: Return immediately if you develop worsening pain, heavy vaginal bleeding, or any other concerning symptoms. Follow-up with [facility] for recheck as soon as possible. Return for any new, worsening, or concerning symptoms. Prescriptions: Cephalexin [Keflex] 500 mg PO Q6H #28 cap Metoclopramide [Reglan] 10 mg PO Q8H PRN #10 tab PRN Reason: Vomiting Is patient prescribed a controlled substance at d/c from ED?: No Referrals: Etelvina Johnson MD [Primary Care Provider] - 1-2 days Keke Mcfadden DO [Doctor of Osteopathic Medicine] - 1-2 days Time of Disposition: 02:25
--- NOTE | 2020-11-04 02:15 | US ---
EXAM: US First Trimester , Transabdominal and Transvaginal CLINICAL HISTORY: ITS.REASON US Reason: Pos home preg test; bleeding/pain. Bleeding and pain x 1 day. Hx 1 miscarriage, ovarian cysts. . First scan. TECHNIQUE: Real-time transabdominal and transvaginal obstetrical ultrasound of the maternal pelvis and a first trimester with image documentation. Transvaginal imaging was used for better evaluation of the fetus and adnexa. COMPARISON: No relevant prior studies available. FINDINGS: LMP: 10/03/2020 Beta-hCG level: Beta HcG (if available): 1,511.9 m IU/mL Gestation: Intrauterine saclike structure may represent a gestational sac. Measures 4.1 mm. This is out of range for gestational age dating. No yolk sac or pole. Placenta/amniotic fluid: Possible small subchorionic bleed, 1.2 cm. Uterus/cervix: Small 3 mm uterine calcification. Nonspecific. Ovaries: Ovaries are not clearly visualized. 3.6 cm right adnexal lesion with 2.5 cm cystic component, and a separate adjacent 2.5 cm heterogeneous/echogenic structure. These both may be part of the right ovary, however not clearly delineated. Left ovary not visualized due to bowel gas. Free fluid: Small amount of free fluid in the cul-de-sac. IMPRESSION: 1. Small intrauterine saclike structure may be early gestational sac, out of range for dating. Overall, differential diagnosis includes early IUP, spontaneous AB, nonvisualized ectopic . 2. Ovaries are not clearly visualized. 3.6 cm right adnexal lesion with 2.5 cm cystic component, and a separate adjacent 2.5 cm heterogeneous/echogenic structure. These both may be part of the right ovary, however not clearly delineated. Ectopic not excluded. Consider follow-up. <MYCVCSECTION> Communications: 11/04/20 02:22 Verify Receipt Verified receipt with [facility] for Mari Osborne NP on 11/04 02:22 (-04:00)
[2020-11-04] MEDS ORDERED: cefTRIAXone IN SWFI 1,000 MG/10 ML SYRINGE IVP STA (02:21)
[2020-11-04 02:49] VITALS: BP 112/61; PULSE 70; TEMP 98
== END 2020-11-04 02:36 | disposition home or self-care (01) ==
LOC: EC 21:30
DX: O23.41 Unspecified infection of urinary tract in pregnancy, first trimester (principal); O9A.211 Injury, poisoning and certain other consequences of external causes complicating pregnancy, first trimester; S99.921A Unspecified injury of right foot, initial encounter; Z87.891 Personal history of nicotine dependence; Z3A.00 Weeks of gestation of pregnancy not specified; W22.03XA Walked into furniture, initial encounter
CPT/HCPCS: 36415; 80053; 83690; 85025; 81001; 84702; 87086; 73660; 76801; 76817; 99284; 96374; 96375 ×2; J1200; J2765; J0696

== ENCOUNTER 2020-12-06 11:33 | Emergency (ER) | payer OTHER ==
[2020-12-06] MEDS ORDERED: diphenhydrAMINE 50 MG/ML 1 ML VIAL IVP STA (12:05)
[2020-12-06] MEDS ORDERED: SODIUM CHLORIDE 0.9% 1,000 ML IV STA (12:05)
[2020-12-06] MEDS ORDERED: ONDANSETRON 4 MG/2 ML VIAL IVP STA (12:07)
--- NOTE | 2020-12-06 12:12 | ED ---
General Adult HPI - General Chief complaint: Dizziness Stated complaint: dizziness Time Seen by Provider: 12/06/20 12:04 Source: patient, RN notes reviewed, old records reviewed Mode of arrival: ambulatory Limitations: no limitations - History of Present Illness Initial comments: 20-year-old white female, alert and oriented 4 and well-appearing, presents to the emergency room with complaints of dizziness for the past 2 days with nausea and vomiting 4-5 times a day. Patient states that she is 9 weeks confirmed by ultrasound. She is a G3, P2. Patient states that she was prescribed Reglan for her hyperemesis however had has not been working. She states when she was at work she has positional dizziness that resolves after about 3 minutes. She Sustained a peeling sunburn to her upper back last week. She denies any abdominal pain, dysuria, vaginal discharge or vaginal bleeding at this time. 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 Has no medical history does not drink or smoke on a daily basis. Patient is not tachycardic heart rate of 81, blood pressure is 114/76 and she is afebrile at 97.9. -: days(s) (2) Associated Symptoms: nausea/vomiting Treatments Prior to Arrival: none - Related Data Previous Rx's Medication Instructions Recorded Albuterol Inhaler [Ventolin Hfa 1 puff INHALATION RT-QID PRN #1 05/29/20 Inhaler] puff Cephalexin [Keflex] 500 mg PO Q6H #28 cap 11/04/20 Metoclopramide [Reglan] 10 mg PO Q8H PRN #10 tab 11/04/20 Cephalexin [Keflex] 500 mg PO Q12HR 7 Days #14 cap 12/06/20 Allergies Allergy/AdvReac Type Severity Reaction Status Date / Time morphine Allergy Unknown Verified 12/06/20 11:46 Review of Systems ROS Statement: Those systems with pertinent positive or pertinent negative responses have been documented in the HPI. ROS Other: All systems not noted in ROS Statement are negative. Past Medical History Past Medical History: No Reported History History of Any Multi-Drug Resistant Organisms: None Reported Past Surgical History: No Surgical Hx Reported Additional Past Surgical History / Comment(s): wisdom teeth Past Anesthesia/Blood Transfusion Reactions: No Reported Reaction Additional Past Anesthesia/Blood Transfusion Reaction / Comment(s): none Past Psychological History: No Psychological Hx Reported Smoking Status: Former smoker Past Alcohol Use History: None Reported Past Drug Use History: None Reported - Past Family History Father Family Medical History: No Reported History Brother(s) Additional Family Medical History / Comment(s): pulmonary stenosis Sister(s) Family Medical History: No Reported History Additional Family Medical History / Comment(s): down syndrome General Exam Limitations: no limitations General appearance: alert, in no apparent distress Head exam: Present: atraumatic, normocephalic, normal inspection Eye exam: Present: normal appearance, PERRL, EOMI. Absent: scleral icterus, conjunctival injection, periorbital swelling Pupils: Present: normal accommodation ENT exam: Present: normal exam, normal oropharynx, mucous membranes moist, TM's normal bilaterally Neck exam: Present: normal inspection, full ROM. Absent: tenderness, meningismus, lymphadenopathy, thyromegaly Respiratory exam: Present: normal lung sounds bilaterally. Absent: respiratory distress, wheezes, rales, rhonchi, stridor, chest wall tenderness, accessory muscle use, decreased breath sounds Cardiovascular Exam: Present: regular rate, normal rhythm, normal heart sounds. Absent: systolic murmur, diastolic murmur, rubs, gallop, clicks, JVD GI/Abdominal exam: Present: soft, normal bowel sounds, other (abdominal Striations). Absent: distended, tenderness, guarding, rebound, rigid, hernia Rectal exam: Present: deferred Extremities exam: Present: normal inspection, full ROM, normal capillary refill. Absent: tenderness, pedal edema, joint swelling, calf tenderness Back exam: Present: normal inspection, full ROM. Absent: tenderness, CVA tenderness (R), CVA tenderness (L), muscle spasm, paraspinal tenderness, vertebral tenderness Neurological exam: Present: alert, oriented X3, CN II-XII intact Psychiatric exam: Present: normal affect, normal mood Skin exam: Present: warm, dry, intact, normal color, other (Peeling, flaking skin from sunburn last week). Absent: rash, cyanosis, diaphoretic, erythema Course Vital Signs 12/06/20 12/06/20 12/06/20 11:43 12:41 14:07 Temperature 97.9 F 98.7 F Pulse Rate 81 80 86 Respiratory 16 16 18 Rate Blood Pressure 114/76 114/62 102/62 O2 Sat by Pulse 100 100 99 Oximetry EKG Findings - EKG Results: EKG: sinus rhythm (Sinus rhythm with sinus arrhythmia, ventricular rate of 67, AK interval 0.128, QRS of 0.84, QTC of 0.420), not changed from: (Compared to 02/07/2020) Medical Decision Making - Medical Decision Making Patient given 1 L normal saline and Zofran and states she feels much better and ready to go home. Patient denies any vaginal bleeding or abdominal pain or soft crab shedder mping. AST 51 PLT of 42 UA shows bacteria, positive leukocytes and positive bacteria, will treat patient for asymptomatic bacteriuria in with Keflex twice a day. Patient will be directed to continue her regimen and follow up with primary care doctor next week and return to the emergency room if abdominal pain vaginal bleeding or worsening symptoms including fever, increasing nausea vomiting or inability keep fluids down. Case discussed with Dr. Urban. - Lab Data Result diagrams: 12/06/20 12:24 12/06/20 12:24 Lab Results 12/06/20 12/06/20 12/06/20 Range/Units 12:24 12:24 12:24 WBC 7.1 (3.8-10.6) k/uL RBC 4.33 (3.80-5.40) m/uL Hgb 12.8 (11.4-16.0) gm/dL Hct 39.1 (34.0-46.0) % MCV 90.4 (80.0-100.0) fL MCH 29.5 (25.0-35.0) pg MCHC 32.6 (31.0-37.0) g/dL RDW 13.6 (11.5-15.5) % Plt Count 160 (150-450) k/uL MPV 9.7 Neutrophils % 75 % Lymphocytes % 20 % Monocytes % 4 % Eosinophils % 1 % Basophils % 1 % Neutrophils # 5.3 (1.3-7.7) k/uL Lymphocytes # 1.4 (1.0-4.8) k/uL Monocytes # 0.3 (0-1.0) k/uL Eosinophils # 0.0 (0-0.7) k/uL Basophils # 0.0 (0-0.2) k/uL Sodium 137 (137-145) mmol/L Potassium 4.3 (3.5-5.1) mmol/L Chloride 108 H (98-107) mmol/L Carbon Dioxide 23 (22-30) mmol/L Anion Gap 6 mmol/L BUN 10 (7-17) mg/dL Creatinine 0.38 L (0.52-1.04) mg/dL Est GFR (CKD-EPI)AfAm >90 (>60 ml/min/1.73 sqM) Est GFR (CKD-EPI)NonAf >90 (>60 ml/min/1.73 sqM) Glucose 86 (74-99) mg/dL Calcium 9.2 (8.4-10.2) mg/dL Total Bilirubin 0.4 (0.2-1.3) mg/dL AST 51 H (14-36) U/L ALT 43 H (4-34) U/L Alkaline Phosphatase 55 (38-126) U/L Total Protein 6.1 L (6.3-8.2) g/dL Albumin 3.7 (3.5-5.0) g/dL Urine Color Yellow Urine Appearance Cloudy H (Clear) Urine pH 6.0 (5.0-8.0) Ur Specific [place] 1.022 (1.001-1.035) Urine Protein Negative (Negative) Urine Glucose (UA) Negative (Negative) Urine Ketones Negative (Negative) Urine Blood Negative (Negative) Urine Nitrite Negative (Negative) Urine Bilirubin Negative (Negative) Urine Urobilinogen <2.0 (<2.0) mg/dL Ur Leukocyte Esterase Moderate H (Negative) Urine WBC 4 (0-5) /hpf Ur Squamous Epith Cells 18 H (0-4) /hpf Urine Bacteria Rare H (None) /hpf Urine Mucus Occasional H (None) /hpf Disposition Clinical Impression: Nausea/vomiting in , Dehydration, Dizziness, UTI (urinary tract infection) during Disposition: HOME SELF-CARE Condition: Good Instructions (If sedation given, give patient instructions): Nausea and Vomiting in (ED), Hyperemesis Gravidarum (ED), Dizziness (ED), Urinary Tract Infection in (ED) Additional Instructions: Continue your Reglan at home as needed for nausea vomiting increase her fluid intake and take the antibiotic for urinary tract infection as prescribed. Follow-up with the primary care doctor next week. Return if increasing symptoms, inability keep food or fluids down, abdominal pain or vaginal bleeding. Prescriptions: Cephalexin [Keflex] 500 mg PO Q12HR 7 Days #14 cap Is patient prescribed a controlled substance at d/c from ED?: No Referrals: Etelvina Johnson MD [Primary Care Provider] - 1-2 days Time of Disposition: 13:52
[2020-12-06 12:45] LABS: Appearance,Urine Cloudy (Clear); Bacteria,Urine Rare /hpf; Bilirubin,Urine Negative (Negative); Blood,Urine Negative (Negative); Color,Urine Yellow; Glucose,Urine (UA) Negative (Negative); Ketones,Urine Negative (Negative); Leukocyte Esterase,Urine Moderate (Negative); Mucus,Urine Occasional /hpf; Nitrite,Urine Negative (Negative); Protein,Urine Negative (Negative); Specific Gravity,Urine 1.022 (1.001-1.035); Squamous Epithelial Cell,Urine 18 /hpf (0-4); Urobilinogen,Urine <2.0 mg/dL (<2.0); WBC,Urine 4 /hpf (0-5)
[2020-12-06 12:56] LABS: ALT 43 U/L (4-34); African American GFR (CKD) >90 (>60 ml/min/1.73 sqM); Anion Gap 6 mmol/L; Blood Urea Nitrogen 10 mg/dL (7-17); Calcium 9.2 mg/dL (8.4-10.2); Carbon Dioxide 23 mmol/L (22-30); Chloride 108 mmol/L (98-107); Glucose 86 mg/dL (74-99); Non-African American GFR(CKD) >90 (>60 ml/min/1.73 sqM); Sodium 137 mmol/L (137-145); Total Bilirubin 0.4 mg/dL (0.2-1.3)
[2020-12-06 13:07] LABS: Basophils % (A) 1 %; Eosinophils % (A) 1 %; HCT 39.1 % (34.0-46.0); HGB 12.8 gm/dL (11.4-16.0); Lymphocytes # (A) 1.4 k/uL (1.0-4.8); Lymphocytes % (A) 20 %; MCH 29.5 pg (25.0-35.0); MCHC 32.6 g/dL (31.0-37.0); MCV 90.4 fL (80.0-100.0); Mean Platelet Volume 9.7; Monocytes # (A) 0.3 k/uL (0-1.0); Monocytes % (A) 4 %; Neutrophils # (A) 5.3 k/uL (1.3-7.7); Neutrophils % (A) 75 %; Platelet Count 160 k/uL (150-450); RBC 4.33 m/uL (3.80-5.40); RDW 13.6 % (11.5-15.5); WBC 7.1 k/uL (3.8-10.6)
[2020-12-06 13:21] LABS: Potassium 4.3 mmol/L (3.5-5.1); Total Protein 6.1 g/dL (6.3-8.2)
[2020-12-06 13:22] LABS: AST 51 U/L (14-36); Albumin 3.7 g/dL (3.5-5.0); Alkaline Phosphatase 55 U/L (38-126)
[2020-12-06 14:07] VITALS: BP 102/62; PULSE 86; RESP 18; TEMP 98.7
== END 2020-12-06 14:07 | disposition home or self-care (01) ==
LOC: EC 11:33
DX: O21.9 Vomiting of pregnancy, unspecified (principal); O99.281 Endocrine, nutritional and metabolic diseases complicating pregnancy, first trimester; O23.41 Unspecified infection of urinary tract in pregnancy, first trimester; E86.0 Dehydration; Z87.891 Personal history of nicotine dependence; Z88.5 Allergy status to narcotic agent; Z3A.09 9 weeks gestation of pregnancy
CPT/HCPCS: 36415; 93005; 80053; 85025; 81001; 99284; 96374; 96375; 96361; J1200; J2405

== ENCOUNTER 2020-12-23 11:54 | Emergency (ER) | payer OTHER ==
[2020-12-23 12:07] VITALS: RESP 18
[2020-12-23] MEDS ORDERED: ACETAMINOPHEN TAB 500 MG TAB PO STA (13:01)
[2020-12-23 13:20] LABS: Basophils % (A) 0 %; Eosinophils % (A) 0 %; HCT 35.2 % (34.0-46.0); HGB 12.2 gm/dL (11.4-16.0); Lymphocytes # (A) 1.3 k/uL (1.0-4.8); Lymphocytes % (A) 15 %; MCH 30.7 pg (25.0-35.0); MCHC 34.5 g/dL (31.0-37.0); MCV 88.8 fL (80.0-100.0); Mean Platelet Volume 9.2; Monocytes # (A) 0.3 k/uL (0-1.0); Monocytes % (A) 3 %; Neutrophils # (A) 6.8 k/uL (1.3-7.7); Neutrophils % (A) 80 %; Platelet Count 174 k/uL (150-450); RBC 3.97 m/uL (3.80-5.40); RDW 13.3 % (11.5-15.5); WBC 8.4 k/uL (3.8-10.6)
[2020-12-23 13:34] LABS: ALT 9 U/L (4-34); AST 18 U/L (14-36); African American GFR (CKD) >90 (>60 ml/min/1.73 sqM); Albumin 3.3 g/dL (3.5-5.0); Alkaline Phosphatase 45 U/L (38-126); Anion Gap 5 mmol/L; Blood Urea Nitrogen 7 mg/dL (7-17); Calcium 9.2 mg/dL (8.4-10.2); Carbon Dioxide 24 mmol/L (22-30); Chloride 106 mmol/L (98-107); Glucose 92 mg/dL (74-99); Non-African American GFR(CKD) >90 (>60 ml/min/1.73 sqM); Potassium 4.1 mmol/L (3.5-5.1); Sodium 135 mmol/L (137-145); Total Bilirubin 0.4 mg/dL (0.2-1.3); Total Protein 5.7 g/dL (6.3-8.2)
[2020-12-23 14:13] LABS: Amorphous Sediment,Urine Rare /hpf; Appearance,Urine Turbid (Clear); Bacteria,Urine Rare /hpf; Bilirubin,Urine Negative (Negative); Blood,Urine Large (Negative); Color,Urine Yellow; Glucose,Urine (UA) Negative (Negative); Ketones,Urine Trace (Negative); Leukocyte Esterase,Urine Large (Negative); Mucus,Urine Occasional /hpf; Nitrite,Urine Negative (Negative); Protein,Urine 1+ (Negative); RBC,Urine >182 /hpf (0-5); Specific Gravity,Urine 1.012 (1.001-1.035); Squamous Epithelial Cell,Urine 4 /hpf (0-4); Urobilinogen,Urine <2.0 mg/dL (<2.0); WBC,Urine 30 /hpf (0-5)
[2020-12-23 14:14] LABS: HCG,Quantitative Serum 65042.7 mIU/mL
--- NOTE | 2020-12-23 14:26 | US ---
EXAMINATION TYPE: Transabdominal DATE OF EXAM: 12/23/2020 1:41 PM COMPARISON: NONE CLINICAL HISTORY: 12 wks, bleeding/pain today. Vaginal bleeding today, pelvic pain EXAM PERFORMED: Transabdominal (TA) EXAM MEASUREMENTS: GESTATIONAL AGE / DATING Physician Established: Not yet established Dates by LMP (11 weeks/6 days) EDC: 07/08/21 Dates by Current Scan for (12 weeks/1 days) EDC: 07/06/21 MATERNAL ANATOMY Uterus: 14.1 x 6.4 x 10.9cm Right Ovary: 3.0 x 2.0 x 2.8cm Left Ovary: unable to visualize Post CDS / Adnexa: cystic area adjacent to right ovary = 2.2 x 1.6 x 2.5cm Presence of free fluid: no Presence of corpus luteal cyst: hypoechoic area = 2.1 x 1.4 x 1.8cm right ovary Presence of subchorionic bleed: large complex fluid collection = 11.4 x 5.4 x 7.4cm adjacent to gesta tional sac GESTATION / SURVEY CRL: 5.6cm (12 weeks/1 days) Yolk Sac (normal less than 6mm): 0.4cm Heart Rate: 161 bpm Rhythm: Normal IUP: Viable IUP Nuchal Translucency 10-14wks (normal less than 3mm): 0.2cm Date of LMP: 10/01/20 Beta HcG (if available Not available at this time IMPRESSION: 1. Single intrauterine with an average ultrasound gestational age of 12 weeks and 1 day. Yo lk sac is 0.4 cm, crown-rump length is 5.6 cm, and heart rate is 161 bpm. 2. There is a large complex fluid collection adjacent to the gestational sac. This measures approxima tely 11.4 cm. Although this may represent a large subchorionic hemorrhage, cortical amniotic separati on is not excluded. Obstetric evaluation is recommended. 3. 2.1 cm right ovarian cyst is most suggestive of a corpus luteum cyst. There is also a cystic area adjacent to the right ovary suggestive of a paraovarian cyst measuring 2.5 cm. 4. The left ovary is not visualized. 5. Continued sonographic and beta hCG and follow-up is recommended.
--- NOTE | 2020-12-23 14:42 | ED ---
Female Urogenital HPI - General Chief complaint: Vaginal Bleeding Stated complaint: 12 wks preg, vag bleeding Time Seen by Provider: 12/23/20 12:41 Source: patient Mode of arrival: ambulatory Limitations: no limitations - History of Present Illness Initial comments: Patient is a 20-year-old female presenting to the emergency Department with complaints of bright red bleeding that happened today about an hour prior to arrival. She is currently approximately 12 weeks , . She states she's been having intermittent spotting throughout this . She states when she woke up from a nap this afternoon she stood up and had a lot of blee ding which ran down her legs. She did put on a pad and came into the ER. She is having cramping as well. She denies any fevers or chills, no chest pain or shortness of breath. She does have some mild nausea, no vomiting. No diarrhea. She has no further complaints at this time. Upon arrival to the ER, her vitals are stable. - Related Data Home Medications Medication Instructions Recorded Confirmed Meclizine [Antivert] 25 mg PO Q8H PRN 12/23/20 12/23/20 Metoclopramide [Reglan] 10 mg PO BID PRN 12/23/20 12/23/20 Clo-Dorb-Fbmri Acid 1 cap PO DAILY 12/23/20 12/23/20 [-U Capsule (formulary)] Allergies Allergy/AdvReac Type Severity Reaction Status Date / Time morphine Allergy Unknown Verified 12/23/20 14:10 Review of Systems ROS Statement: Those systems with pertinent positive or pertinent negative responses have been documented in the HPI. ROS Other: All systems not noted in ROS Statement are negative. Past Medical History Past Medical History: No Reported History History of Any Multi-Drug Resistant Organisms: None Reported Past Surgical History: No Surgical Hx Reported Additional Past Surgical History / Comment(s): wisdom teeth Past Anesthesia/Blood Transfusion Reactions: No Reported Reaction Additional Past Anesthesia/Blood Transfusion Reaction / Comment(s): none Past Psychological History: No Psychological Hx Reported Smoking Status: Former smoker Past Alcohol Use History: None Reported Past Drug Use History: None Reported - Past Family History Father Family Medical History: No Reported History Brother(s) Additional Family Medical History / Comment(s): pulmonary stenosis Sister(s) Family Medical History: No Reported History Additional Family Medical History / Comment(s): down syndrome General Exam - General Exam Comments Initial Comments: GENERAL: Patient is well-developed and well-nourished. Patient is nontoxic and in no acute distress. HEAD: Atraumatic, normocephalic. EYES: Pupils equal round and reactive to light, extraocular movements intact, sclera anicteric, conjunctiva are normal. Eyelids were unremarkable. ENT: TMs normal, nares patent, oropharynx clear without exudates. Moist mucous membranes. NECK: Normal range of motion, supple without lymphadenopathy or JVD. LUNGS: Unlabored respirations. Breath sounds clear to auscultation bilaterally and equal. No wheezes rales or rhonchi. HEART: Regular rate and rhythm without murmurs, rubs or gallops. ABDOMEN: Soft, tender to palpation of the lower abdomen, top of the uterus is felt, normoactive bowel sounds. MUSCULOSKELETAL: Normal extremities with adequate strength and normal range of motion, no pitting or edema. No clubbing or cyanosis. NEUROLOGICAL: Patient is alert and oriented x 3. Motor and sensory are also intact. Cranial nerves II through XII grossly intact. Symmetrical smile. Normal speech, normal gait. PSYCH: Normal mood, normal affect. SKIN: Warm, Dry, normal turgor, no rashes or lesions noted. Limitations: no limitations External exam: Present: normal external exam Speculum exam: Present: vaginal bleeding (light) By manual exam: Present: normal by manual exam Course Vital Signs 12/23/20 12:03 Temperature 98.2 F Pulse Rate 72 Respiratory 18 Rate Blood Pressure 95/65 O2 Sat by Pulse 97 Oximetry Medical Decision Making - Medical Decision Making Patient is a 20-year-old female here currently 12 weeks presenting with bleeding that started 1 hour prior to arrival, well as some lower abdominal cramping. Vital signs are stable. , DATA C[facility] PROJECT MANAGER is Dr. Mcfadden. Labs are within normal limits, hemoglobin is stable, urine shows large amount of blood. OB ultrasound today shows a single viable IUP with gestational age of 12 weeks and 1 day, heart rate is 161. There is a large complex fluid collection adjacent to the gestational sac that measures approximately 11 cm, although this may represent a large subchorionic hemorrhage, cortical amniotic separation is not excluded. Recommend OB evaluation. I did discuss these details with Dr. Patricio who is covering for Dr. Mcfadden and he is okay with patient being discharged home. Recommend pelvic rest and they will most likely repeat ultrasound in a week or 2. I discussed these findings and plan of care with the patient. She i s in agreement this plan of care. She was reexamined, no active bleeding. Return parameters were discussed with the patient she verbalized understanding. Case discussed with Dr. Mancilla. - Lab Data Result diagrams: 12/23/20 13:04 12/23/20 13:04 Lab Results 12/23/20 12/23/20 12/23/20 Range/Units 13:04 13:04 13:04 WBC 8.4 (3.8-10.6) k/uL RBC 3.97 (3.80-5.40) m/uL Hgb 12.2 (11.4-16.0) gm/dL Hct 35.2 (34.0-46.0) % MCV 88.8 (80.0-100.0) fL MCH 30.7 (25.0-35.0) pg MCHC 34.5 (31.0-37.0) g/dL RDW 13.3 (11.5-15.5) % Plt Count 174 (150-450) k/uL MPV 9.2 Neutrophils % 80 % Lymphocytes % 15 % Monocytes % 3 % Eosinophils % 0 % Basophils % 0 % Neutrophils # 6.8 (1.3-7.7) k/uL Lymphocytes # 1.3 (1.0-4.8) k/uL Monocytes # 0.3 (0-1.0) k/uL Eosinophils # 0.0 (0-0.7) k/uL Basophils # 0.0 (0-0.2) k/uL Sodium (137-145) mmol/L Potassium (3.5-5.1) mmol/L Chloride (98-107) mmol/L Carbon Dioxide (22-30) mmol/L Anion Gap mmol/L BUN (7-17) mg/dL Creatinine (0.52-1.04) mg/dL Est GFR (CKD-EPI)AfAm (>60 ml/min/1.73 sqM) Est GFR (CKD-EPI)NonAf (>60 ml/min/1.73 sqM) Glucose (74-99) mg/dL Calcium (8.4-10.2) mg/dL Total Bilirubin (0.2-1.3) mg/dL AST (14-36) U/L ALT (4-34) U/L Alkaline Phosphatase (38-126) U/L Total Protein (6.3-8.2) g/dL Albumin (3.5-5.0) g/dL HCG, Quant mIU/mL Urine Color Yellow Urine Appearance Turbid H (Clear) Urine pH 7.0 (5.0-8.0) Ur Specific [place] 1.012 (1.001-1.035) Urine Protein 1+ H (Negative) Urine Glucose (UA) Negative (Negative) Urine Ketones Trace H (Negative) Urine Blood Large H (Negative) Urine Nitrite Negative (Negative) Urine Bilirubin Negative (Negative) Urine Urobilinogen <2.0 (<2.0) mg/dL Ur Leukocyte Esterase Large H (Negative) Urine RBC >182 H (0-5) /hpf Urine WBC 30 H (0-5) /hpf Ur Squamous Epith Cells 4 (0-4) /hpf Amorphous Sediment Rare H (None) /hpf Urine Bacteria Rare H (None) /hpf Urine Mucus Occasional H (None) /hpf Blood Type O Positive Blood Type Recheck O Pos Bld Type Recheck Status No 12/23/20 Range/Units 13:04 WBC (3.8-10.6) k/uL RBC (3.80-5.40) m/uL Hgb (11.4-16.0) gm/dL Hct (34.0-46.0) % MCV (80.0-100.0) fL MCH (25.0-35.0) pg MCHC (31.0-37.0) g/dL RDW (11.5-15.5) % Plt Count (150-450) k/uL MPV Neutrophils % % Lymphocytes % % Monocytes % % Eosinophils % % Basophils % % Neutrophils # (1.3-7.7) k/uL Lymphocytes # (1.0-4.8) k/uL Monocytes # (0-1.0) k/uL Eosinophils # (0-0.7) k/uL Basophils # (0-0.2) k/uL Sodium 135 L (137-145) mmol/L Potassium 4.1 (3.5-5.1) mmol/L Chloride 106 (98-107) mmol/L Carbon Dioxide 24 (22-30) mmol/L Anion Gap 5 mmol/L BUN 7 (7-17) mg/dL Creatinine 0.35 L (0.52-1.04) mg/dL Est GFR (CKD-EPI)AfAm >90 (>60 ml/min/1.73 sqM) Est GFR (CKD-EPI)NonAf >90 (>60 ml/min/1.73 sqM) Glucose 92 (74-99) mg/dL Calcium 9.2 (8.4-10.2) mg/dL Total Bilirubin 0.4 (0.2-1.3) mg/dL AST 18 (14-36) U/L ALT 9 (4-34) U/L Alkaline Phosphatase 45 (38-126) U/L Total Protein 5.7 L (6.3-8.2) g/dL Albumin 3.3 L (3.5-5.0) g/dL HCG, Quant 16829.7 mIU/mL Urine Color Urine Appearance (Clear) Urine pH (5.0-8.0) Ur Specific [place] (1.001-1.035) Urine Protein (Negative) Urine Glucose (UA) (Negative) Urine Ketones (Negative) Urine Blood (Negative) Urine Nitrite (Negative) Urine Bilirubin (Negative) Urine Urobilinogen (<2.0) mg/dL Ur Leukocyte Esterase (Negative) Urine RBC (0-5) /hpf Urine WBC (0-5) /hpf Ur Squamous Epith Cells (0-4) /hpf Amorphous Sediment (None) /hpf Urine Bacteria (None) /hpf Urine Mucus (None) /hpf Blood Type Blood Type Recheck Bld Type Recheck Status Disposition Clinical Impression: Subchorionic hemorrhage in first trimester, Abdominal cramping Disposition: HOME SELF-CARE Condition: Stable Instructions (If sedation given, give patient instructions): Subchorionic Hemorrhage (ED) Additional Instructions: Please return to the Emergency Department if symptoms worsen or any other concerns. Recommend pelvic rest, no intercourse, no straining physical activity. Take Tylenol for any discomfort. Please follow up with her DATA CENTER PROJECT MANAGER. Is patient prescribed a controlled substance at d/c from ED?: No Referrals: Etelvina Johnson MD [Primary Care Provider] - 1-2 days Keke Mcfadden DO [Doctor of Osteopathic Medicine] - 1-2 days Time of Disposition: 15:02
[2020-12-23 15:17] VITALS: BP 101/59; PULSE 60; TEMP 98
== END 2020-12-23 15:16 | disposition home or self-care (01) ==
LOC: EC 11:54
DX: O46.91 Antepartum hemorrhage, unspecified, first trimester (principal); O26.891 Other specified pregnancy related conditions, first trimester; R10.9 Unspecified abdominal pain; Z87.891 Personal history of nicotine dependence; Z67.40 Type O blood, Rh positive; Z88.5 Allergy status to narcotic agent; Z3A.12 12 weeks gestation of pregnancy
CPT/HCPCS: 36415; 76801; 76813; 80053; 81001; 84702; 85025; 86900; 86901; 87086; 99284

== ENCOUNTER 2021-01-07 12:00 | Emergency (ER) | payer OTHER ==
[2021-01-07 12:12] VITALS: TEMP 98.3
[2021-01-07] MEDS ORDERED: SODIUM CHLORIDE 0.9% 1,000 ML IV ONE (12:35)
[2021-01-07 13:03] LABS: Basophils % (A) 0 %; Eosinophils # (A) 0.2 k/uL (0-0.7); Eosinophils % (A) 2 %; HCT 36.1 % (34.0-46.0); HGB 11.8 gm/dL (11.4-16.0); Lymphocytes # (A) 1.5 k/uL (1.0-4.8); Lymphocytes % (A) 20 %; MCH 30.1 pg (25.0-35.0); MCHC 32.7 g/dL (31.0-37.0); MCV 91.9 fL (80.0-100.0); Mean Platelet Volume 10.7; Monocytes # (A) 0.3 k/uL (0-1.0); Monocytes % (A) 4 %; Neutrophils # (A) 5.3 k/uL (1.3-7.7); Neutrophils % (A) 72 %; Platelet Count 133 k/uL (150-450); RBC 3.93 m/uL (3.80-5.40); WBC 7.4 k/uL (3.8-10.6)
[2021-01-07 13:06] LABS: Amorphous Sediment,Urine Rare /hpf; Appearance,Urine Turbid (Clear); Bacteria,Urine Occasional /hpf; Bilirubin,Urine Negative (Negative); Blood,Urine Large (Negative); Color,Urine Yellow; Glucose,Urine (UA) Negative (Negative); Hyaline Casts,Urine 3 /lpf (0-2); Ketones,Urine Negative (Negative); Leukocyte Esterase,Urine Negative (Negative); Mucus,Urine Moderate /hpf; Nitrite,Urine Negative (Negative); PH, Urine 6.5 (5.0-8.0); Protein,Urine Negative (Negative); RBC,Urine 2 /hpf (0-5); Specific Gravity,Urine 1.021 (1.001-1.035); Squamous Epithelial Cell,Urine 5 /hpf (0-4); Urobilinogen,Urine <2.0 mg/dL (<2.0)
[2021-01-07 13:18] LABS: ALT 7 U/L (4-34); AST 17 U/L (14-36); African American GFR (CKD) >90 (>60 ml/min/1.73 sqM); Albumin 3.4 g/dL (3.5-5.0); Alkaline Phosphatase 48 U/L (38-126); Anion Gap 5 mmol/L; Blood Urea Nitrogen 7 mg/dL (7-17); Carbon Dioxide 26 mmol/L (22-30); Chloride 106 mmol/L (98-107); Glucose 85 mg/dL (74-99); Non-African American GFR(CKD) >90 (>60 ml/min/1.73 sqM); Potassium 3.9 mmol/L (3.5-5.1); Sodium 137 mmol/L (137-145); Total Bilirubin 0.2 mg/dL (0.2-1.3); Total Protein 5.8 g/dL (6.3-8.2)
[2021-01-07 13:36] LABS: INR 0.9 (<1.2); Prothrombin Time 9.7 sec (9.0-12.0)
[2021-01-07 13:38] LABS: Partial Thromboplastin Time 20.6 sec (22.0-30.0)
--- NOTE | 2021-01-07 13:45 | US ---
EXAMINATION TYPE: Transabdominal DATE OF EXAM: 01/07/2021 1:34 PM COMPARISON: NONE CLINICAL HISTORY: pain. vaginal bleeding EXAM PERFORMED: Transabdominal (TA) EXAM MEASUREMENTS: GESTATIONAL AGE / DATING Physician Established: Not yet established Dates by LMP: (14 weeks/0 days) EDC: 07/08/21 Dates by First Scan: (14 weeks/2 days) EDC: 07/06/21 Dates by Current Scan for: (14 weeks/1 days) EDC: 07/07/21 MATERNAL ANATOMY Uterus: 13.6 x 7.1 x 14.1cm Right Ovary: 2.5 x 2.1 x 2.6cm Left Ovary: unable to visualize Post CDS / Adnexa: cystic area adjacent to right ovary = 2.4 x 1.8 x 1.8cm Presence of free fluid: no Presence of subchorionic bleed: yes, large complex fluid collection adjacent to GS = 12.4 x 2.7 x 7.7 cm GESTATION / SURVEY CRL: 8.3cm (14 weeks/1 days) Yolk Sac (normal less than 6mm): not seen Heart Rate: 154 bpm Rhythm: Normal IUP: Viable IUP Date of LMP: 10/01/20 Beta HcG (if available): Not available at this time This is not an anatomic survey. IMPRESSION: There is a single live intrauterine with gestational age measuring approximately 14 weeks a nd 1 day gestation by sonographic criteria with a complex collection adjacent to the gestational sac, likely a large subchorionic hemorrhage.
--- NOTE | 2021-01-07 14:04 | ED ---
Female Urogenital HPI - General Chief complaint: Vaginal Bleeding Stated complaint: Vaginal Bleeding Time Seen by Provider: 01/07/21 12:31 Source: patient, RN notes reviewed Mode of arrival: ambulatory Limitations: no limitations - History of Present Illness Initial comments: A she is a 20-year-old female that presents to the emergency Department compla ining of vaginal bleeding while 14 weeks . She notes that she was seen approximately 2 weeks ago with the same complaint. She was discharged home and given strict return parameters and strict follow-up recommendations with CAUSTIC STRENGTH INSPECTOR. She notes that she did have an CAUSTIC STRENGTH INSPECTOR appointment but was unable to make it due to cardiac issues. She presents today to get reevaluated. She was in no appa rent distress or pain while sitting up in bed during exam and review. She did note some mild abdominal And lower portion. Patient is . She denied any other issues or complaints. - Related Data Home Medications Medication Instructions Recorded Confirmed Meclizine [Antivert] 25 mg PO Q8H PRN 12/23/20 12/23/20 Metoclopramide [Reglan] 10 mg PO BID PRN 12/23/20 12/23/20 Uwz-Tytn-Npvea Acid 1 cap PO DAILY 12/23/20 12/23/20 [-U Capsule (formulary)] Allergies Allergy/AdvReac Type Severity Reaction Status Date / Time morphine Allergy Unknown Verified 01/07/21 12:12 Review of Systems ROS Statement: Those systems with pertinent positive or pertinent negative responses have been documented in the HPI. ROS Other: All systems not noted in ROS Statement are negative. Past Medical History Past Medical History: No Reported History History of Any Multi-Drug Resistant Organisms: None Reported Past Surgical History: No Surgical Hx Reported Additional Past Surgical History / Comment(s): wisdom teeth Past Anesthesia/Blood Transfusion Reactions: No Reported Reaction Additional Past Anesthesia/Blood Transfusion Reaction / Comment(s): none Past Psychological History: No Psychological Hx Reported Smoking Status: Former smoker Past Alcohol Use History: None Reported Past Drug Use History: None Reported - Past Family History Father Family Medical History: No Reported History Brother(s) Additional Family Medical History / Comment(s): pulmonary stenosis Sister(s) Family Medical History: No Reported History Additional Family Medical History / Comment(s): down syndrome General Exam Limitations: no limitations General appearance: alert, in no apparent distress Head exam: Present: atraumatic, normocephalic, normal inspection Eye exam: Present: normal appearance, PERRL, EOMI. Absent: scleral icterus, conjunctival injection, periorbital swelling Neck exam: Present: normal inspection Respiratory exam: Present: normal lung sounds bilaterally. Absent: respiratory distress, wheezes, rales, rhonchi, stridor Cardiovascular Exam: Present: regular rate, normal rhythm, normal heart sounds. Absent: systolic murmur, diastolic murmur, rubs, gallop, clicks GI/Abdominal exam: Present: soft, distended (), normal bowel sounds. Absent: tenderness, guarding, rebound, rigid Extremities exam: Present: normal inspection, full ROM, normal capillary refill. Absent: tenderness, pedal edema, joint swelling, calf tenderness Neurological exam: Present: alert, oriented X3 Psychiatric exam: Present: normal affect, normal mood Skin exam: Present: warm, dry, intact, normal color. Absent: rash Course Vital Signs 01/07/21 12:09 Temperature 98.3 F Pulse Rate 63 Respiratory 17 Rate Blood Pressure 112/66 O2 Sat by Pulse 97 Oximetry Medical Decision Making - Medical Decision Making 20-year-old female approximate 14 weeks complaining of vaginal bleeding and lower abdominal cramping. Labs, 1 L normal saline, ultrasound ordered. Labs unremarkable from previous studies 2 weeks ago. Ultrasound shows the same large subchorionic hemorrhage but a live intrauterine . Case discussed with Dr. George, patient can discharge home with close follow-up to CAUSTIC STRENGTH INSPECTOR. - Lab Data Result diagrams: 01/07/21 12:54 01/07/21 12:54 Lab Results 01/07/21 01/07/21 01/07/21 Range/Units 12:54 12:54 12:54 WBC 7.4 (3.8-10.6) k/uL RBC 3.93 (3.80-5.40) m/uL Hgb 11.8 (11.4-16.0) gm/dL Hct 36.1 (34.0-46.0) % MCV 91.9 (80.0-100.0) fL MCH 30.1 (25.0-35.0) pg MCHC 32.7 (31.0-37.0) g/dL RDW 13.0 (11.5-15.5) % Plt Count 133 L (150-450) k/uL MPV 10.7 Neutrophils % 72 % Lymphocytes % 20 % Monocytes % 4 % Eosinophils % 2 % Basophils % 0 % Neutrophils # 5.3 (1.3-7.7) k/uL Lymphocytes # 1.5 (1.0-4.8) k/uL Monocytes # 0.3 (0-1.0) k/uL Eosinophils # 0.2 (0-0.7) k/uL Basophils # 0.0 (0-0.2) k/uL PT 9.7 (9.0-12.0) sec INR 0.9 (<1.2) APTT 20.6 L (22.0-30.0) sec Sodium (137-145) mmol/L Potassium (3.5-5.1) mmol/L Chloride (98-107) mmol/L Carbon Dioxide (22-30) mmol/L Anion Gap mmol/L BUN (7-17) mg/dL Creatinine (0.52-1.04) mg/dL Est GFR (CKD-EPI)AfAm (>60 ml/min/1.73 sqM) Est GFR (CKD-EPI)NonAf (>60 ml/min/1.73 sqM) Glucose (74-99) mg/dL Calcium (8.4-10.2) mg/dL Total Bilirubin (0.2-1.3) mg/dL AST (14-36) U/L ALT (4-34) U/L Alkaline Phosphatase (38-126) U/L Total Protein (6.3-8.2) g/dL Albumin (3.5-5.0) g/dL Urine Color Yellow Urine Appearance Turbid H (Clear) Urine pH 6.5 (5.0-8.0) Ur Specific [place] 1.021 (1.001-1.035) Urine Protein Negative (Negative) Urine Glucose (UA) Negative (Negative) Urine Ketones Negative (Negative) Urine Blood Large H (Negative) Urine Nitrite Negative (Negative) Urine Bilirubin Negative (Negative) Urine Urobilinogen <2.0 (<2.0) mg/dL Ur Leukocyte Esterase Negative (Negative) Urine RBC 2 (0-5) /hpf Ur Squamous Epith Cells 5 H (0-4) /hpf Amorphous Sediment Rare H (None) /hpf Urine Bacteria Occasional H (None) /hpf Hyaline Casts 3 H (0-2) /lpf Urine Mucus Moderate H (None) /hpf Urine HCG, Qual (Not Detectd) 01/07/21 01/07/21 Range/Units 12:54 12:54 WBC (3.8-10.6) k/uL RBC (3.80-5.40) m/uL Hgb (11.4-16.0) gm/dL Hct (34.0-46.0) % MCV (80.0-100.0) fL MCH (25.0-35.0) pg MCHC (31.0-37.0) g/dL RDW (11.5-15.5) % Plt Count (150-450) k/uL MPV Neutrophils % % Lymphocytes % % Monocytes % % Eosinophils % % Basophils % % Neutrophils # (1.3-7.7) k/uL Lymphocytes # (1.0-4.8) k/uL Monocytes # (0-1.0) k/uL Eosinophils # (0-0.7) k/uL Basophils # (0-0.2) k/uL PT (9.0-12.0) sec INR (<1.2) APTT (22.0-30.0) sec Sodium 137 (137-145) mmol/L Potassium 3.9 (3.5-5.1) mmol/L Chloride 106 (98-107) mmol/L Carbon Dioxide 26 (22-30) mmol/L Anion Gap 5 mmol/L BUN 7 (7-17) mg/dL Creatinine 0.39 L (0.52-1.04) mg/dL Est GFR (CKD-EPI)AfAm >90 (>60 ml/min/1.73 sqM) Est GFR (CKD-EPI)NonAf >90 (>60 ml/min/1.73 sqM) Glucose 85 (74-99) mg/dL Calcium 9.0 (8.4-10.2) mg/dL Total Bilirubin 0.2 (0.2-1.3) mg/dL AST 17 (14-36) U/L ALT 7 (4-34) U/L Alkaline Phosphatase 48 (38-126) U/L Total Protein 5.8 L (6.3-8.2) g/dL Albumin 3.4 L (3.5-5.0) g/dL Urine Color Urine Appearance (Clear) Urine pH (5.0-8.0) Ur Specific [place] (1.001-1.035) Urine Protein (Negative) Urine Glucose (UA) (Negative) Urine Ketones (Negative) Urine Blood (Negative) Urine Nitrite (Negative) Urine Bilirubin (Negative) Urine Urobilinogen (<2.0) mg/dL Ur Leukocyte Esterase (Negative) Urine RBC (0-5) /hpf Ur Squamous Epith Cells (0-4) /hpf Amorphous Sediment (None) /hpf Urine Bacteria (None) /hpf Hyaline Casts (0-2) /lpf Urine Mucus (None) /hpf Urine HCG, Qual Detected (Not Detectd) - Radiology Data Radiology results: report reviewed, image reviewed ultrasound: There is a single live intrauterine with gestational age measuring approximate 14 weeks and 1 day gestation by sonographic criteria with a complex collection adjacent to the gestational sac likely a large subchorionic hemorrhage. Disposition Clinical Impression: Subchorionic hemorrhage in first trimester, Abdominal cramping Disposition: HOME SELF-CARE Condition: Stable Instructions (If sedation given, give patient instructions): Dysmenorrhea (ED) Additional Instructions: Please return to the Emergency Department if symptoms worsen or any other concerns. Close follow-up with CAUSTIC STRENGTH INSPECTOR. Pelvic floor rest, avoid strenuous activity, intercourse, lifting. Work note given. Is patient prescribed a controlled substance at d/c from ED?: No Referrals: Etelvina Johnson MD [Primary Care Provider] - 1-2 days Time of Disposition: 14:04
[2021-01-07 15:01] VITALS: BP 110/74; PULSE 64; RESP 16
== END 2021-01-07 14:57 | disposition home or self-care (01) ==
LOC: EC 12:00
DX: O20.8 Other hemorrhage in early pregnancy (principal); O26.892 Other specified pregnancy related conditions, second trimester; Z3A.14 14 weeks gestation of pregnancy; Z87.891 Personal history of nicotine dependence
CPT/HCPCS: 36415; 76801; 80053; 81001; 81025; 85025; 85610; 85730; 99284

== ENCOUNTER 2021-02-10 10:41 | Emergency (ER) | payer OTHER ==
[2021-02-10 10:51] VITALS: RESP 18
[2021-02-10] MEDS ORDERED: SODIUM CHLORIDE 0.9% 1,000 ML IV STA (11:05)
[2021-02-10] MEDS ORDERED: MECLIZINE 12.5 MG TAB PO STA (11:05)
[2021-02-10 12:01] LABS: Basophils % (A) 1 %; Eosinophils # (A) 0.1 k/uL (0-0.7); Eosinophils % (A) 1 %; HCT 35.1 % (34.0-46.0); HGB 11.9 gm/dL (11.4-16.0); Lymphocytes # (A) 1.5 k/uL (1.0-4.8); Lymphocytes % (A) 20 %; MCH 31.4 pg (25.0-35.0); MCHC 33.9 g/dL (31.0-37.0); MCV 92.7 fL (80.0-100.0); Mean Platelet Volume 9.8; Monocytes # (A) 0.3 k/uL (0-1.0); Monocytes % (A) 4 %; Neutrophils # (A) 5.8 k/uL (1.3-7.7); Neutrophils % (A) 74 %; Platelet Count 158 k/uL (150-450); RBC 3.79 m/uL (3.80-5.40); RDW 13.7 % (11.5-15.5); WBC 7.9 k/uL (3.8-10.6)
[2021-02-10 12:11] LABS: ALT 7 U/L (4-34); AST 15 U/L (14-36); African American GFR (CKD) >90 (>60 ml/min/1.73 sqM); Albumin 3.1 g/dL (3.5-5.0); Alkaline Phosphatase 44 U/L (38-126); Anion Gap 6 mmol/L; Blood Urea Nitrogen 4 mg/dL (7-17); Calcium 8.9 mg/dL (8.4-10.2); Carbon Dioxide 21 mmol/L (22-30); Chloride 106 mmol/L (98-107); Glucose 82 mg/dL (74-99); Non-African American GFR(CKD) >90 (>60 ml/min/1.73 sqM); Potassium 3.9 mmol/L (3.5-5.1); Sodium 133 mmol/L (137-145); Total Bilirubin 0.2 mg/dL (0.2-1.3); Total Protein 5.4 g/dL (6.3-8.2)
--- NOTE | 2021-02-10 12:20 | CT ---
EXAMINATION TYPE: CT brain wo con DATE OF EXAM: 02/10/2021 COMPARISON: 02/07/2020 HISTORY: dizziness, syncope CT DLP: 1025.[address] of the brain was performed. The ventricles, basal cisterns and sulci overlying the cerebral convexities demonstrate a normal appe arance. There is no evidence for intracranial hemorrhage or sulcal effacement. No mass effects are seen. Osseous calvarium is intact. If symptoms persist consider MRI as clinically warranted. IMPRESSION: 1. No acute intracranial process is seen at this time.
[2021-02-10 12:31] LABS: INR 0.9 (<1.2); Prothrombin Time 9.7 sec (9.0-12.0)
--- NOTE | 2021-02-10 12:57 | US ---
EXAMINATION TYPE: US OB >= 14 wk fetus DATE OF EXAM: 02/10/2021 COMPARISON: None CLINICAL HISTORY: 18 week Patient states passing out. Hx of bleed. TECHNIQUE: Transabdominal (TA) GESTATIONAL AGE / DATING Physician Established: (18 weeks/6 days) EDC: 07/08/2021 Dates by Current Scan: (18 weeks/4 days) EDC: 07/10/2021 Beta HCG (if available): Not available at this time SURVEY IUP: Single PLACENTA: Anterior PREVIA: No Previa LO: 11.1 cm Normal volume with moving debris seen throughout fluid CERVICAL LENGTH (transabdominal: norm > 3.0cm): 3.5 cm BIOMETRY PRESENTATION: Vertex BPD: 4.0 cm 18 weeks / 1 days HC: 16.0 cm 18 weeks / 6 days AC: 13.5 cm 19 weeks / 0 days FL: 2.9 cm 18 weeks / 5 days ESTIMATED WEIGHT IN GRAMS: 260.6 grams ESTIMATED WEIGHT IN LBS/OZ: 0 lbs. 9 oz. WEIGHT PERCENTAGE BASED ON ESTABLISHED DATES: 44.8% HC/AC: 1.2 Normal FL/AC: 21.1 Normal HEART RATE: 150 bpm RHYTHM: Normal Single live IUP measuring 18 weeks 6 days. Prominent vessels seen in bilateral adnexa. Moving debri s seen throughout amniotic fluid. IMPRESSION: 1. Viable 18 week 16 day with a heart rate 115 bpm. Incidental note made of debris within t he amniotic fluid which is nonspecific. Recommend short-term follow-up and correlation with serial be ta hCG and pelvic ultrasound as clinically warranted.
[2021-02-10 13:24] LABS: Amorphous Sediment,Urine Rare /hpf; Appearance,Urine Cloudy (Clear); Bacteria,Urine Occasional /hpf; Bilirubin,Urine Negative (Negative); Blood,Urine Negative (Negative); Color,Urine Light Yellow; Glucose,Urine (UA) Negative (Negative); Ketones,Urine Negative (Negative); Leukocyte Esterase,Urine Moderate (Negative); Mucus,Urine Rare /hpf; Nitrite,Urine Negative (Negative); Protein,Urine Negative (Negative); Specific Gravity,Urine 1.006 (1.001-1.035); Squamous Epithelial Cell,Urine 11 /hpf (0-4); Urobilinogen,Urine <2.0 mg/dL (<2.0); WBC,Urine 8 /hpf (0-5)
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
[2021-02-10] MEDS ORDERED: cefTRIAXone IN SWFI 1,000 MG/10 ML SYRINGE IVP STA (13:34)
[2021-02-10 14:20] VITALS: BP 100/57; PULSE 68; TEMP 98.5
== END 2021-02-10 14:20 | disposition home or self-care (01) ==
LOC: EC 10:41
DX: O26.892 Other specified pregnancy related conditions, second trimester (principal); O23.42 Unspecified infection of urinary tract in pregnancy, second trimester; O99.891 Other specified diseases and conditions complicating pregnancy; R42 Dizziness and giddiness; R55 Syncope and collapse; Z3A.18 18 weeks gestation of pregnancy; Z88.5 Allergy status to narcotic agent
CPT/HCPCS: 36415; 93005; 80053; 84484; 85025; 85610; 81001; 76805; 70450; 99284; 96374; 96361; J0696

== ENCOUNTER 2021-02-24 10:52 | Outpatient (CLI) | payer OTHER ==
[2021-02-24 11:48] VITALS: BP 125/59; PULSE 60; RESP 17; TEMP 97.8
--- NOTE | 2021-02-26 07:00 | P.MSEPDOC ---
Presenting Problems - Arrival Data Date of Arrival on Unit: 02/24/21 Time of Arrival on Unit: 10:52 Mode of Transport: Ambulatory - Complaint OB-Reason for Admission/Chief Complaint: Pain Comment: lower back pain and right sided pain, pt loosing her mucous plug Medical History - Information : 3 Para: 2 Term: 2 : 0 Abortions: Spontaneous or Elective: 0 Number of Living Children: 2 - Gestational Age Gestational Age by CAT (wks/days): 20 Weeks and 6 Days - History Comment: history of pretem labors with 2 other pregnancies, delivered at term Review of Systems - Review of Systems Constitutional: No problems Breast: No problems ENT: No problems Cardiovascular: No problems Respiratory: No problems Gastrointestinal: No problems Genitourinary: No problems Musculoskeletal: No problems Neurological: No problems Skin: No problems Vital Signs - Temperature Temperature: 97.8 F Temperature Source: Oral - Pulse Right Brachial Pulse Rate: 60 Pulse Assessment Method: Automatic Cuff - Respirations Respiratory Rate: 17 Oxygen Delivery Method: Room Air - Blood Pressure Right Arm Blood Pressure: 125/59 Blood Pressure Mean: 81 Blood Pressure Source: Automatic Cuff Medical Screen Scoring - Cervical Exam Dilation (cm): 0 Membranes: Intact - Assessment - Baby A Baseline FHR: 130 Heart Rate - NICHD Category: Category I (Normal) Physician Notification - Physician Notified Physician Notified Date: 02/24/21 Physician Notified Time: 11:15 Physician: Silas Klein Maternal Triage Index - Maternal Triage Index Presenting for scheduled procedure w/no complaint: No - Stat/Priority 1 Stat Priority 1: No - Urgent/Priority 2 Urgent Priority 2: No - Prompt/Priority 3 Prompt Priority 3: No - Non-Urgent/Priority 4 Non-Urgent Priority 4: No Criteria Met for Priority 4: pt 20 6/7 weeks, lost mucous plug and having contractions per patient - Scheduled/Requesting Priority 5 Scheduled/Requesting Priority 5: No Disposition - Disposition OB Disposition: Discharge to home, Written follow up instructions reviewed Discharge Date: 02/24/21 Discharge Time: 11:40 I agree with the RN Medical Screening Exam: Yes Case reviewed; plan agreed upon as documented in EMR&OBIX.: Yes Diagnosis: FALSE LABOR BEFORE 37 COMPLETED WEEKS OF GEST, THIRD TRI
== END 2021-02-24 11:40 | disposition home or self-care (01) ==
LOC: FBPOP 10:52
PROVIDERS: ATTEND Obstetrics & Gynecology
DX: O47.03 False labor before 37 completed weeks of gestation, third trimester (principal); Z3A.20 20 weeks gestation of pregnancy
CPT/HCPCS: 84112; G0463; 99213

== ENCOUNTER 2021-05-26 10:04 | Outpatient (CLI) | payer OTHER ==
[2021-05-26 10:57] VITALS: BP 110/67; PULSE 106; RESP 18; TEMP 96.8
[2021-05-26 12:06] LABS: Amorphous Sediment,Urine Moderate /hpf; Appearance,Urine Turbid (Clear); Bilirubin,Urine Negative (Negative); Blood,Urine Negative (Negative); Color,Urine Yellow; Glucose,Urine (UA) Negative (Negative); Ketones,Urine Negative (Negative); Leukocyte Esterase,Urine Moderate (Negative); Mucus,Urine Many /hpf; Nitrite,Urine Negative (Negative); Protein,Urine Trace (Negative); RBC,Urine 2 /hpf (0-5); Specific Gravity,Urine 1.019 (1.001-1.035); Squamous Epithelial Cell,Urine 7 /hpf (0-4); WBC,Urine 6 /hpf (0-5)
--- NOTE | 2021-06-09 13:18 | P.MSEPDOC ---
Presenting Problems - Arrival Data Date of Arrival on Unit: 05/26/21 Time of Arrival on Unit: 10:04 Mode of Transport: Ambulatory - Complaint OB-Reason for Admission/Chief Complaint: Possible Onset of Labor, Rule Out PROM Medical History - Information : 3 Para: 2 Term: 2 : 0 Abortions: Spontaneous or Elective: 0 Number of Living Children: 2 - Gestational Age Gestational Age by CAT (wks/days): 33 Weeks and 6 Days Review of Systems - Review of Systems Constitutional: No problems Breast: No problems ENT: No problems Cardiovascular: No problems Respiratory: No problems Gastrointestinal: No problems Genitourinary: No problems Musculoskeletal: No problems Neurological: No problems Skin: No problems Vital Signs - Temperature Temperature: 96.8 F Temperature Source: Temporal Artery Scan - Pulse Right Pulse Oximetery Pulse Rate: 106 Pulse Assessment Method: Pulse Oximetry - Respirations Respiratory Rate: 18 Oxygen Delivery Method: Room Air - Blood Pressure Right Arm Blood Pressure: 110/67 Blood Pressure Mean: 81 Blood Pressure Source: Automatic Cuff Medical Screen Scoring - Cervical Exam Dilation (cm): 1 Effacement (%): 0 Station: -3 Membranes: Intact - Uterine Contractions Intensity: Mild Resting: Soft to palpation - Assessment - Baby A Baseline FHR: 120 Heart Rate - NICHD Category: Category I (Normal) NST: Reactive Physician Notification - Physician Notified Physician Notified Date: 05/26/21 Physician Notified Time: 12:08 Physician: Keke Mcfadden New Order Received: Yes (Discharge home with follow up instructions.) Maternal Triage Index - Stat/Priority 1 Stat Priority 1: Yes Provider Notified: Keke Mcfadden Provider Notified Time: 12:08 Criteria Met for Priority 1: Orders for discharge home with follow up instructions. Disposition - Disposition OB Disposition: Discharge to home Discharge Date: 05/26/21 Discharge Time: 12:13 I agree with the RN Medical Screening Exam: Yes Case reviewed; plan agreed upon as documented in EMR&OBIX.: Yes Diagnosis: FALSE LABOR BEFORE 37 COMPLETED WEEKS OF GEST, THIRD TRI
== END 2021-05-26 12:13 | disposition home or self-care (01) ==
LOC: FBPOP 10:04
PROVIDERS: ATTEND Obstetrics & Gynecology
DX: O47.03 False labor before 37 completed weeks of gestation, third trimester (principal); Z3A.33 33 weeks gestation of pregnancy; Z87.891 Personal history of nicotine dependence; Z88.5 Allergy status to narcotic agent
CPT/HCPCS: 59025; 84112; 82731; 81001; G0463; 99213

== ENCOUNTER 2021-07-07 06:00 | Inpatient (IN) | payer OTHER ==
--- NOTE | 2021-07-06 11:03 | P.HPOB ---
History of Present Illness H&P Date: 07/06/21 Chief Complaint: Induction of labor This is a 20 y.o. female, 3, para 2, with an estimated date of confinement of 07/08/2021, estimated gestational age of 39-6/7 weeks, who presents for induction of labor. She does have a history of contractions and pelvic pain during this . She also had a large subchorionic hemorrhage earlier in her that did resolve. She also has been under alot of stress due to custody issues and has been on Zoloft for this. She plans on giving this baby up for adoption to her cousin. labs: Hepatitis B surface antigen-neg RPR-NR Rubella-immune Blood type-O+ Antibody screen-neg HIV-NR Hemoglobin-13.5 Random glucose-78 1 hr. GTT-96 GBS-neg, but history of positive in previous OB Hx: . History of 2 vaginal deliveries at term. Last baby 9#2oz. [employer] Hx: No hx STDs Social Hx: Single. Lives with boyfriend. Currently mom has custody of her 2 children. Review of Systems Constitutional: Denies chills, Denies fever Eyes: denies blurred vision, denies pain Ears, nose, mouth and throat: Reports headache, Denies sore throat Cardiovascular: Denies chest pain, Denies shortness of breath Respiratory: Denies cough Gastrointestinal: Reports abdominal pain, Reports nausea Genitourinary: Reports pelvic pain, Reports Musculoskeletal: Reports low back pain Integumentary: Denies pruritus, Denies rash Neurological: Denies numbness, Denies weakness Psychiatric: Reports anxiety, Reports depression Past Medical History Past Medical History: Asthma Additional Past Medical History / Comment(s): seasonal allergies, vertigo History of Any Multi-Drug Resistant Organisms: None Reported Additional Past Surgical History / Comment(s): wisdom teeth Past Anesthesia/Blood Transfusion Reactions: No Reported Reaction Additional Past Anesthesia/Blood Transfusion Reaction / Comment(s): none Past Psychological History: Anxiety, Depression Smoking Status: Never smoker Past Alcohol Use History: None Reported Past Drug Use History: None Reported - Past Family History Father Family Medical History: Cancer (Lung) Brother(s) Additional Family Medical History / Comment(s): pulmonary stenosis Sister(s) Family Medical History: No Reported History Additional Family Medical History / Comment(s): down syndrome Medications and Allergies Home Medications Medication Instructions Recorded Confirmed Type Meclizine [Antivert] 25 mg PO Q8H PRN 12/23/20 05/26/21 History Bjf-Flfo-Pngrx Acid 1 cap PO DAILY 12/23/20 05/26/21 History [-U Capsule (formulary)] Albuterol Sulfate [Proair Hfa] 1 - 2 puff INHALATION RT-Q6H PRN 02/10/21 05/26/21 History Ferrous Sulfate [Feosol] 325 mg PO DAILY 02/10/21 05/26/21 History Loratadine [Claritin] 10 mg PO DAILY 02/10/21 05/26/21 History Sertraline [Zoloft] 25 mg PO DAILY 02/10/21 05/26/21 History QUEtiapine [SEROquel] 50 mg PO HS 05/26/21 05/26/21 History Allergies Allergy/AdvReac Type Severity Reaction Status Date / Time morphine Allergy Anaphylaxis Verified 05/26/21 10:22 Exam Osteopathic Statement: *. No significant issues noted on an osteopathic structural exam other than those noted in the History and Physical/Consult. HEENT: within normal limits Heart: regular rate and rhythm Lungs: clear to auscultation bilaterally Abdomen: soft, Cervix: 4 cm/70%/-2 heart tones: 150's by doppler Extremities: neg. Valdez's Assessment and Plan (1) 39 weeks gestation of Status: Acute Code(s): Z3A.39 - 39 WEEKS GESTATION OF SNOMED Code(s): 84804995 (2) Group B Streptococcus carrier, +RV culture, currently Status: Acute Code(s): O99.820 - STREPTOCOCCUS B CARRIER STATE COMPLICATING SNOMED Code(s): 3739493908517 Plan: Admission for induction of labor. Expectant management. Epidural anesthesia if desired. Will consult social sciences professor due to no custody of other children and plans for adoption of this child. Antibiotic prophylaxis due to history of GBS in previous .
[2021-07-07] MEDS ORDERED: OXYTOCIN 10 UNIT/ML 1 ML VIAL IM PRN (06:24)
[2021-07-07] MEDS ORDERED: LIDOCAINE 1% (10MG/ML) FOR IV START INTRADERMA PRN (06:24)
[2021-07-07] MEDS ORDERED: OXYTOCIN 30 UNITS/500 ML NS 30 UNIT in SALINE 1 500ML.BAG IV SCH ×2 (06:24→14:22)
[2021-07-07] MEDS ORDERED: METHYLERGONOVINE 0.2 MG/ML 1 ML AMP IM PRN (06:24)
[2021-07-07] MEDS ORDERED: CARBOPROST TROMETHAMINE 250 MCG/ML 1 ML AMP IM PRN (06:24)
[2021-07-07] MEDS ORDERED: LIDOCAINE 0.5% (PF) 5 MG/ML (50 ML SDV) SQ PRN (06:24)
[2021-07-07] MEDS ORDERED: TERBUTALINE 1 MG/ML VIAL SQ PRN (06:24)
[2021-07-07] MEDS ORDERED: LACTATED RINGERS 1,000 ML IV SCH (06:24)
[2021-07-07] MEDS ORDERED: AMPICILLIN 2,000 MG in SODIUM CHLORIDE 0.9% 100 ML IVPB ONE (06:30)
[2021-07-07 06:42] LABS: Basophils % (A) 1 %; Eosinophils % (A) 1 %; HCT 35.8 % (34.0-46.0); HGB 11.8 gm/dL (11.4-16.0); Lymphocytes % (A) 25 %; MCH 29.3 pg (25.0-35.0); MCHC 32.9 g/dL (31.0-37.0); MCV 89.1 fL (80.0-100.0); Mean Platelet Volume 11.5; Monocytes # (A) 0.4 k/uL (0-1.0); Monocytes % (A) 4 %; Neutrophils # (A) 5.5 k/uL (1.3-7.7); Neutrophils % (A) 68 %; Platelet Count 162 k/uL (150-450); RBC 4.02 m/uL (3.80-5.40); RDW 14.4 % (11.5-15.5)
[2021-07-07] MEDS ORDERED: AMPICILLIN 1,000 MG in SODIUM CHLORIDE 0.9% 50 ML IVPB SCH (10:30)
[2021-07-07] MEDS ORDERED: BUTORPHANOL 1 MG/ML 1 ML VIAL IV PRN (11:41)
[2021-07-07] MEDS ORDERED: ROPIVACAINE 5MG/ML 20ML VIAL ONE (12:41)
[2021-07-07] MEDS ORDERED: fentaNYL (PF) 50 MCG/ML 5 ML AMP ONE (12:41)
[2021-07-07] MEDS ORDERED: SODIUM CHLORIDE 0.9% 100 ML BAG ONE (12:41)
[2021-07-07] MEDS ORDERED: BENZOCAINE/MENTHOL SPRAY 1 GM/SPRAY AEROSOL TOPICAL PRN (14:22)
[2021-07-07] MEDS ORDERED: diphenhydrAMINE 25 MG CAP PO PRN (14:22)
[2021-07-07] MEDS ORDERED: HYDROCORTISONE 2.5% RECTAL CREAM 30 GM TUBE RECTAL PRN (14:22)
[2021-07-07] MEDS ORDERED: diphenhydrAMINE 50 MG CAP PO PRN (14:22)
[2021-07-07] MEDS ORDERED: LANOLIN CREAM 5 GM TUBE TOPICAL PRN (14:22)
[2021-07-07] MEDS ORDERED: ZOLPIDEM 5 MG TAB PO PRN (14:22)
[2021-07-07] MEDS ORDERED: SIMETHICONE 80 MG CHEWABLE PO PRN (14:22)
[2021-07-07] MEDS ORDERED: IBUPROFEN 600 MG TAB PO PRN (14:22)
[2021-07-07] MEDS ORDERED: diphenhydrAMINE 50 MG/ML 1 ML VIAL IVP PRN ×2 (14:22)
[2021-07-07] MEDS: FERROUS SULFATE 325 MG TAB PO SCH (14:41)
[2021-07-07] MEDS: SERTRALINE 25 MG TAB PO SCH (14:41)
[2021-07-07] MEDS: PRENATAL VIT-IRON-FOLIC ACID 1 EACH CAP PO SCH (14:47)
[2021-07-07] MEDS ORDERED: ONDANSETRON 4 MG TAB PO STA (17:08)
--- NOTE | 2021-07-07 19:04 | P.PROBDLV ---
Vaginal Delivery Note - . Vaginal Delivery Note: The patient progressed to complete dilation after oxytocin induction of labor and artificial rupture membranes with clear fluid noted. She did receive epidural anesthesia. Once reaching complete, she began pushing. 's head came to a crown. With one further push, the infant's head delivered across the perineum followed by the anterior shoulder and the remainder of the infant. Nose and mouth were bulb suctioned at the perineum. Infant was placed on mother's abdomen. Cord was allowed to finish pulsating and then the cord was clamped and cut. Infant was then taken to warmer for evaluation. A viable female was noted with scores of 9 at 1 minute and 9 at 5 minutes and infant weight was 8 lbs. 3 oz. Placenta delivered shortly thereafter, intact, with a three-vessel cord. Uterus contracted well after oxytocin was given and uterine massage was carried out. A gloved hand was also placed within the uterine cavity and there was noted to be some membranous tissue that was adherent and manually removed. Uterus did contract well after this. Bladder was also drained with a catheter. Inspection of the perineum revealed no perineal lacerations. Estimated blood loss is approximately 250 mL's. Both mother and are in stable condition.
[2021-07-07] MEDS: SENNOSIDES-DOCUSATE SODIUM 1 EACH TAB PO SCH (20:21)
[2021-07-07] MEDS ORDERED: QUEtiapine 50 MG TAB PO SCH (21:00)
[2021-07-08] MEDS: ACETAMINOPHEN TAB 325 MG TAB PO PRN ×2 (00:13→11:16)
[2021-07-08 05:30] LABS: Basophils % (A) 0 %; Eosinophils % (A) 0 %; HCT 31.4 % (34.0-46.0); HGB 10.3 gm/dL (11.4-16.0); Lymphocytes # (A) 1.7 k/uL (1.0-4.8); Lymphocytes % (A) 18 %; MCH 29.1 pg (25.0-35.0); MCHC 32.8 g/dL (31.0-37.0); MCV 88.8 fL (80.0-100.0); Mean Platelet Volume 11.5; Monocytes # (A) 0.4 k/uL (0-1.0); Monocytes % (A) 4 %; Neutrophils # (A) 7.2 k/uL (1.3-7.7); Neutrophils % (A) 77 %; Platelet Count 157 k/uL (150-450); RBC 3.54 m/uL (3.80-5.40); RDW 14.2 % (11.5-15.5); WBC 9.4 k/uL (3.8-10.6)
--- NOTE | 2021-07-08 05:41 | P.DS ---
Providers Date of admission: 07/07/21 06:10 Expected date of discharge: 07/08/21 Attending physician: Keke Mcfadden Primary care physician: Stated None - Discharge Diagnosis(es) (1) 39 weeks gestation of Current Visit: No Status: Acute (2) Group B Streptococcus carrier, +RV culture, currently Current Visit: No Status: Acute Hospital Course: This is a 20-year-old female 3 para 2 at 39-6/7 weeks who presented for induction of labor. She underwent oxytocin induction of labor and delivered vaginally a viable female infant on 07/07/2021 with scores of 9 at 1 minute and 9 at 5 minutes and infant weight of 8 lbs. 3 oz. Her course has been uncomplicated. Lochia is decreasing. Her pain is well- controlled. Baby is being bottle fed. Patient is giving the baby up for adoption and social media specialist is aware. The adoptive mom is staying in the hospital with the baby. Vital signs are stable. Abdomen is soft with fundus firm and nontender. Extremities show negative Homans. Impression is status post vaginal delivery day #1. Plan is to discharge home later today. Routine instructions are given. She is advised to continue taking her Zoloft at home. She will call if she has any concerns or questions prior to her visit. She will be given a prescription for ibuprofen. Procedures: Oxytocin induction of labor Spontaneous vaginal delivery of a viable female on 07/07/2021 Patient Condition at Discharge: Stable Plan - Discharge Summary New Discharge Prescriptions: New Ibuprofen [Motrin] 600 mg PO Q6HR PRN #60 tab PRN Reason: Mild Pain (Scale 1 To 3) Continue Hdp-[id number]-Yrlfd Acid [-U Capsule (formulary)] 1 cap PO DAILY Sertraline [Zoloft] 25 mg PO DAILY Ferrous Sulfate [Iron (65 MG Elemental)] 325 mg PO DAILY Discharge Medication List Lew-Wecq-Cgeax Acid [-U Capsule (formulary)] 1 cap PO DAILY 12/23/20 [History] Ferrous Sulfate [Iron (65 MG Elemental)] 325 mg PO DAILY 02/10/21 [History] Sertraline [Zoloft] 25 mg PO DAILY 07/07/21 [History] Ibuprofen [Motrin] 600 mg PO Q6HR PRN #60 tab 07/08/21 [Rx] Follow up Appointment(s)/Referral(s): Keke Mcfadden DO [Doctor of Osteopathic Medicine] - 08/18/21 11:30 am Activity/Diet/Wound Care/Special Instructions: Instructions 1. Do not begin any exercise program for 3 weeks. 2. Do not resume sexual relations for 3 weeks or longer if uncomfortable. 3. You may take tub baths or showers at any time. 4. You may use tampons if desired after 3 weeks. 5. Keep the area of episiotomy (stitches) clean and dry. 6. If you are not nursing, wear a good fitting, supportive bra during the day and limit fluid intake for at least 1 week to prevent breast engorgement. 7. Call the office, [phone], within the next week to make appointment for your 6 week checkup if it has not already been made. 8. Report any of the following occurrences to the doctor promptly: a. Heavy, excessive bleeding b. Chills, fever c. Burning or frequency of urination d. Pain or redness and breasts if nursing e. Increasing pain or swelling in episiotomy (stitches). In addition to the above instructions, the following additional should be followed: 1. No heavy lifting or straining (exercising) until after 6 week checkup. 2. Keep abdominal incision clean and dry: You may wear a dressing if more comfortable. 3. Make office appointment for 10 days after going home or as instructed by her doctor. Discharge Disposition: HOME SELF-CARE
[2021-07-08 07:13] LABS: Large Platelets Present
[2021-07-08] MEDS: FERROUS SULFATE 325 MG TAB PO SCH (09:05)
[2021-07-08] MEDS: SENNOSIDES-DOCUSATE SODIUM 1 EACH TAB PO SCH (09:05)
[2021-07-08] MEDS: PRENATAL VIT-IRON-FOLIC ACID 1 EACH CAP PO SCH (09:05)
[2021-07-08] MEDS: SERTRALINE 25 MG TAB PO SCH (10:51)
[2021-07-08 12:11] VITALS: BP 115/71; RESP 17; TEMP 98.4
[2021-07-08 12:23] VITALS: PULSE 58
== END 2021-07-08 16:50 | disposition home or self-care (01) | DRG 807 ==
LOC: 4FBP 06:10
PROVIDERS: ADMIT Obstetrics & Gynecology; ATTEND Obstetrics & Gynecology
PROC: 10E0XZZ Delivery of Products of Conception, External Approach (ICD-10-PCS; principal; 2021-07-07)
PROC: 3E033VJ Introduction of Other Hormone into Peripheral Vein, Percutaneous Approach (ICD-10-PCS; 2021-07-07)
PROC: 10907ZC Drainage of Amniotic Fluid, Therapeutic from Products of Conception, Via Natural or Artificial Opening (ICD-10-PCS; 2021-07-07)
DX: O99.824 Streptococcus B carrier state complicating childbirth (principal); O99.52 Diseases of the respiratory system complicating childbirth; O99.344 Other mental disorders complicating childbirth; J45.909 Unspecified asthma, uncomplicated; J30.2 Other seasonal allergic rhinitis; Z37.0 Single live birth; R42 Dizziness and giddiness; F41.9 Anxiety disorder, unspecified; F32.A Depression, unspecified; Z3A.39 39 weeks gestation of pregnancy; Z79.899 Other long term (current) drug therapy; Z88.5 Allergy status to narcotic agent
CPT/HCPCS: 85025; 86850; 86900; 86901; 88307

== ENCOUNTER 2022-05-15 10:54 | Emergency (ER) | payer OTHER ==
[2022-05-15 11:34] VITALS: TEMP 98
--- NOTE | 2022-05-15 12:02 | ED ---
General Adult HPI - General Chief complaint: Upper Respiratory Infection Stated complaint: SOB Time Seen by Provider: 05/15/22 11:48 Source: patient, RN notes reviewed Mode of arrival: ambulatory Limitations: no limitations - History of Present Illness Initial comments: This is a pleasant 21-year-old female with history of asthma. She states that she has had a bit of a hard time breathing and a cough which developed since yesterday. Patient was disposed to COVID-19 last week. Patient's 2 younger children had RSV about 2 weeks ago then started getting runny nose and cough over the past few days. No headache, no fever or chills, no changes in vision or hearing, no sore throat or difficulty with speech, no neck pain, no chest pain, no abdominal pain, no nausea or vomiting, no changes in urination or bowel movements, no numbness or tingling, no extremity pain, no skin rashes or lesions. Past medical, surgical, social, and family history reviewed. - Related Data Home Medications Medication Instructions Recorded Confirmed Zka-[id number] Acid 1 cap PO DAILY 12/23/20 07/07/21 [-U Capsule (formulary)] Ferrous Sulfate [Iron (65 MG 325 mg PO DAILY 02/10/21 07/07/21 Elemental)] Sertraline [Zoloft] 25 mg PO DAILY 07/07/21 07/07/21 Previous Rx's Medication Instructions Recorded Ibuprofen [Motrin] 600 mg PO Q6HR PRN #60 tab 07/08/21 Allergies Allergy/AdvReac Type Severity Reaction Status Date / Time morphine Allergy Anaphylaxis Verified 05/15/22 11:34 Review of Systems ROS Statement: Those systems with pertinent positive or pertinent negative responses have been documented in the HPI. ROS Other: All systems not noted in ROS Statement are negative. Past Medical History Past Medical History: Asthma Additional Past Medical History / Comment(s): elevated liver enzymes during per pt History of Any Multi-Drug Resistant Organisms: None Reported Past Surgical History: No Surgical Hx Reported Additional Past Surgical History / Comment(s): wisdom teeth Past Anesthesia/Blood Transfusion Reactions: No Reported Reaction Additional Past Anesthesia/Blood Transfusion Reaction / Comment(s): none Past Psychological History: Anxiety Smoking Status: Never smoker Past Alcohol Use History: None Reported Past Drug Use History: None Reported - Past Family History Father Family Medical History: Cancer, Diabetes Mellitus Additional Family Medical History / Comment(s): lung Brother(s) Additional Family Medical History / Comment(s): pulmonary stenosis Sister(s) Family Medical History: No Reported History Additional Family Medical History / Comment(s): down syndrome General Exam - General Exam Comments Initial Comments: Nontoxic appearing female in no acute distress Limitations: no limitations General appearance: alert, in no apparent distress Head exam: Present: atraumatic, normocephalic, normal inspection Eye exam: Present: normal appearance, PERRL, EOMI. Absent: scleral icterus, conjunctival injection, periorbital swelling ENT exam: Present: normal exam, normal oropharynx, mucous membranes moist, TM's normal bilaterally, normal external ear exam. Absent: mucous membranes dry Neck exam: Present: normal inspection, full ROM. Absent: tenderness, meningismus, lymphadenopathy Respiratory exam: Present: normal lung sounds bilaterally. Absent: respiratory distress, wheezes, rales, rhonchi, stridor Cardiovascular Exam: Present: regular rate, normal rhythm, normal heart sounds. Absent: systolic murmur, diastolic murmur, rubs, gallop, clicks GI/Abdominal exam: Present: soft, normal bowel sounds. Absent: distended, tenderness, guarding, rebound, rigid Extremities exam: Present: normal inspection, full ROM, normal capillary refill. Absent: tenderness, pedal edema, joint swelling, calf tenderness Back exam: Present: normal inspection Neurological exam: Present: alert, oriented X3, CN II-XII intact Psychiatric exam: Present: normal affect, normal mood Skin exam: Present: warm, dry, intact, normal color. Absent: rash Course Vital Signs 05/15/22 11:32 Temperature 98 F Pulse Rate 64 Respiratory 16 Rate Blood Pressure 98/66 O2 Sat by Pulse 100 Oximetry Medical Decision Making - Medical Decision Making Patient symptomology consistent with a viral upper respiratory infection. Patient in no distress. Patient was told to return to the ER for any signs or symptoms worsen. Told to return immediately if any other problems arise. All questions answered. Treatment plan discussed. Patient in agreement Every effort has been made to ensure accuracy of this dictation. However, due to the limitations of electronic medical records and dictation devices, errors in charting still occur. Supervising physician Dr. Mancilla - Lab Data Lab Results 05/15/22 05/15/22 Range/Units 11:34 11:34 Coronavirus (PCR) Not Detected (Not Detectd) Influenza Type A RNA Not Detected (Not Detectd) Influenza Type B (PCR) Not Detected (Not Detectd) Disposition Clinical Impression: Viral URI with cough Disposition: HOME SELF-CARE Condition: Good Instructions (If sedation given, give patient instructions): Upper Respiratory Infection (ED) Additional Instructions: Follow-up with your regular physician as directed. Return to the ER immediately if any symptoms worsen, new symptoms arise, or any other problems develop. Is patient prescribed a controlled substance at d/c from ED?: No Referrals: Etelvina Johnson MD [Primary Care Provider] - 05/18/22 Time of Disposition: 12:25
[2022-05-15 12:44] VITALS: BP 116/74; PULSE 97; RESP 20
== END 2022-05-15 12:44 | disposition home or self-care (01) ==
LOC: EC 10:54
DX: J06.9 Acute upper respiratory infection, unspecified (principal); J45.909 Unspecified asthma, uncomplicated; F41.9 Anxiety disorder, unspecified; Z88.6 Allergy status to analgesic agent; Z20.822 Contact with and (suspected) exposure to COVID-19
CPT/HCPCS: 87502; 87635; 99284

== ENCOUNTER 2022-05-30 11:14 | Emergency (ER) | payer OTHER ==
[2022-05-30 11:19] VITALS: TEMP 98.1
[2022-05-30] MEDS ORDERED: KETOROLAC 15 MG/ML 1 ML VIAL IVP STA (11:44)
[2022-05-30] MEDS ORDERED: SODIUM CHLORIDE 0.9% 1,000 ML IV STA (11:44)
--- NOTE | 2022-05-30 12:03 | ED ---
General Adult HPI - General Chief complaint: Shortness of Breath Stated complaint: SOB chest wall pain Time Seen by Provider: 05/30/22 11:30 Source: patient, RN notes reviewed Mode of arrival: ambulatory Limitations: no limitations - History of Present Illness Initial comments: Patient is a 21-year-old female presenting to the emergency room with complaints of intermittent episodes of generalized malaise over the last 3 days with the development of chest wall pain and left arm pain earlier today. Pain is reproducible with light touch and worse with inspiration. She also reports "tingling all over," shortness of breath especially with activity and occasional cough. She reports believing so she has some fevers but has not checked her temp erature. She is complaining of occasional chills. She has recent known exposure to both RSV and influenza. She has past medical history significant for asthma and anxiety. - Related Data Home Medications Medication Instructions Recorded Confirmed Albuterol Inhaler [Ventolin Hfa 1 - 2 puff INHALATION RT-QID PRN 05/30/22 05/30/22 Inhaler] Multivitamins, Thera [Multivitamin 1 tab PO DAILY 05/30/22 05/30/22 (formulary)] norgestimate-ethinyl estradioL 1 tab PO DAILY@1400 05/30/22 05/30/22 [Tri-Sprintec Tablet] Allergies Allergy/AdvReac Type Severity Reaction Status Date / Time morphine Allergy Anaphylaxis Verified 05/30/22 12:53 Review of Systems ROS Statement: Those systems with pertinent positive or pertinent negative responses have been documented in the HPI. ROS Other: All systems not noted in ROS Statement are negative. Past Medical History Past Medical History: Asthma History of Any Multi-Drug Resistant Organisms: None Reported Past Surgical History: No Surgical Hx Reported Additional Past Surgical History / Comment(s): wisdom teeth Past Anesthesia/Blood Transfusion Reactions: No Reported Reaction Additional Past Anesthesia/Blood Transfusion Reaction / Comment(s): none Past Psychological History: Anxiety Smoking Status: Never smoker Past Alcohol Use History: None Reported Past Drug Use History: None Reported - Past Family History Father Family Medical History: Cancer, Diabetes Mellitus Additional Family Medical History / Comment(s): lung Brother(s) Additional Family Medical History / Comment(s): pulmonary stenosis Sister(s) Family Medical History: No Reported History Additional Family Medical History / Comment(s): down syndrome General Exam Limitations: no limitations General appearance: alert, in no apparent distress Head exam: Present: atraumatic, normocephalic, normal inspection Eye exam: Present: normal appearance, PERRL, EOMI. Absent: scleral icterus, conjunctival injection, periorbital swelling ENT exam: Present: normal exam, mucous membranes moist Neck exam: Present: normal inspection, full ROM Respiratory exam: Present: normal lung sounds bilaterally, chest wall tenderness. Absent: respiratory distress, wheezes, rales, rhonchi, stridor Cardiovascular Exam: Present: regular rate, normal rhythm, normal heart sounds. Absent: systolic murmur, diastolic murmur, rubs, gallop, clicks GI/Abdominal exam: Present: soft, normal bowel sounds. Absent: distended, tenderness, guarding, rebound, rigid Extremities exam: Present: normal inspection, normal capillary refill. Absent: pedal edema, joint swelling Back exam: Present: normal inspection Neurological exam: Present: alert, oriented X3, CN II-XII intact Psychiatric exam: Present: flat affect, other (Anxious at times) Skin exam: Present: warm, dry, intact, normal color. Absent: rash Course Vital Signs 05/30/22 05/30/22 11:16 12:53 Temperature 98.1 F Pulse Rate 101 H 76 Respiratory 18 16 Rate Blood Pressure 110/83 O2 Sat by Pulse 100 76 L Oximetry Medical Decision Making - Medical Decision Making 21-year-old female presenting with shortness of breath, pleuritic chest pain and body aches along with "tingling sensation all over" with known RSV and flu exposure. Hemodynamically stable. Respiratory and cardiovascular exam normal. No indication for diagnostic imaging, EKG or laboratory studies. Will obtain cephid swabs for COVID RSV and influenza pending results will plan for further laboratory studies if needed. We'll give IV fluid bolus along with Toradol for pain. Patient refuses IV fluid bolus. Toradol given. Cephid swab positive for influenza a. Discussed signs and symptoms of influenza and symptomatic management. Tamiflu offered and declined. Patient not currently vaccinated for influenza. Discussed need for quarantine for 5 days post symptoms or positive influenza testing. Return parameters to the emergency room reviewed. Will discharge patient home in stable condition. Case discussed with Dr. George. - Lab Data Lab Results 05/30/22 Range/Units 11:40 Influenza Type A (PCR) Detected A (Not Detectd) Influenza Type B (PCR) Not Detected (Not Detectd) RSV (PCR) Not Detected (Not Detectd) SARS-CoV-2 (PCR) Not Detected (Not Detectd) Disposition Clinical Impression: Influenza A Disposition: HOME SELF-CARE Condition: Stable Instructions (If sedation given, give patient instructions): Influenza (ED) Additional Instructions: Please utilize [id number] ibuprofen or Tylenol as needed for pain and fevers. Good hydration encouraged. Please continue to quarantine until 5 days from the onset of symptoms. Follow-up with your primary care provider after quarantine. Please return to the Emergency Department if symptoms worsen or any other concerns. Is patient prescribed a controlled substance at d/c from ED?: No Referrals: None,Stated [Primary Care Provider] - 1-2 days Time of Disposition: 12:39
[2022-05-30 12:54] VITALS: BP 110/83; PULSE 76; RESP 16
== END 2022-05-30 12:54 | disposition home or self-care (01) ==
LOC: EC 11:14
DX: J10.1 Influenza due to other identified influenza virus with other respiratory manifestations (principal); J45.909 Unspecified asthma, uncomplicated; F41.9 Anxiety disorder, unspecified; Z88.5 Allergy status to narcotic agent; Z79.899 Other long term (current) drug therapy; Z20.822 Contact with and (suspected) exposure to COVID-19
CPT/HCPCS: 87636; 99285; 96374; J1885

== ENCOUNTER 2022-08-26 15:57 | Emergency (ER) | payer OTHER ==
[2022-08-26 16:02] VITALS: RESP 18; TEMP 98.4
[2022-08-26] MEDS ORDERED: SODIUM CHLORIDE 0.9% 500 ML 500 ML IV STA (16:13)
[2022-08-26] MEDS ORDERED: ONDANSETRON 4 MG/2 ML VIAL IVP STA (16:14)
--- NOTE | 2022-08-26 16:20 | ED ---
Abdominal Pain HPI - General Chief Complaint: Abdominal Pain Stated Complaint: Abd Pain,Early Time Seen by Provider: 08/26/22 16:06 Source: patient, RN notes reviewed, old records reviewed Mode of arrival: ambulatory Limitations: no limitations - History of Present Illness Initial Comments: This is a well-appearing 21-year-old female that presents to the emergency room with left sided upper and lower abdominal pain since yesterday. Patient states that she did have an episode of nausea and vomiting but denies any fevers. No diarrhea. States that she is between 5 and 7 weeks, unsure of lmp. Denies any vaginal bleeding, discharge or dysuria. Does have a history of asthma and anxiety, takes BuSpar and vitamins daily. Vapes daily. MD Complaint: abdominal pain -: days(s) (1) Location: LUQ, LLQ Radiation: none Severity scale (1-10): 10 Quality: sharp Consistency: constant Improves With: nothing Worsens With: other (palpation) Associated Symptoms: nausea, vomiting (once) - Related Data Patient : Yes Number of weeks : 6 Home Medications Medication Instructions Recorded Confirmed Albuterol Inhaler [Ventolin Hfa 1 - 2 puff INHALATION RT-QID PRN 05/30/22 05/30/22 Inhaler] Multivitamins, Thera [Multivitamin 1 tab PO DAILY 05/30/22 05/30/22 (formulary)] norgestimate-ethinyl estradioL 1 tab PO DAILY@1400 05/30/22 05/30/22 [Tri-Sprintec Tablet] Previous Rx's Medication Instructions Recorded Acetaminophen Tab [Tylenol] 650 mg PO Q6H PRN #30 tab 08/26/22 Cephalexin [Keflex] 500 mg PO Q6HR 7 Days #28 cap 08/26/22 Allergies Allergy/AdvReac Type Severity Reaction Status Date / Time morphine Allergy Anaphylaxis Verified 08/26/22 16:02 Review of Systems ROS Statement: Those systems with pertinent positive or pertinent negative responses have been documented in the HPI. ROS Other: All systems not noted in ROS Statement are negative. Past Medical History Past Medical History: Asthma Additional Past Medical History / Comment(s): elevated liver enzymes during per pt History of Any Multi-Drug Resistant Organisms: None Reported Past Surgical History: No Surgical Hx Reported Additional Past Surgical History / Comment(s): wisdom teeth Past Anesthesia/Blood Transfusion Reactions: No Reported Reaction Additional Past Anesthesia/Blood Transfusion Reaction / Comment(s): none Past Psychological History: Anxiety Smoking Status: Never smoker Past Alcohol Use History: None Reported Past Drug Use History: None Reported - Past Family History Father Family Medical History: Cancer, Diabetes Mellitus Additional Family Medical History / Comment(s): lung Brother(s) Additional Family Medical History / Comment(s): pulmonary stenosis Sister(s) Family Medical History: No Reported History Additional Family Medical History / Comment(s): down syndrome General Exam Limitations: no limitations General appearance: alert, in no apparent distress Head exam: Present: atraumatic Eye exam: Present: normal appearance. Absent: scleral icterus, conjunctival injection, periorbital swelling Respiratory exam: Present: normal lung sounds bilaterally. Absent: respiratory distress, accessory muscle use Cardiovascular Exam: Present: regular rate GI/Abdominal exam: Present: soft, tenderness (LUQ LLQ). Absent: distended, guarding, rebound, rigid, mass Extremities exam: Present: normal capillary refill. Absent: pedal edema Back exam: Present: normal inspection, full ROM. Absent: tenderness, CVA tenderness (R), CVA tenderness (L), rash noted Neurological exam: Present: alert, oriented X3 Psychiatric exam: Present: normal affect, normal mood Skin exam: Present: warm, dry, normal color. Absent: cyanosis, diaphoretic, petechiae, pallor Course Vital Signs 08/26/22 08/26/22 15:59 19:11 Temperature 98.4 F Pulse Rate 94 91 Respiratory 18 18 Rate Blood Pressure 118/76 118/84 O2 Sat by Pulse 100 99 Oximetry Medical Decision Making - Medical Decision Making Ultrasound shows evidence of early intrauterine 5 weeks 1 day, fetus too small to show cardiac motion. Small amount of free fluid in cul-de-sac, no sign of ectopic . BHCG 39989.4 Hemoglobin and Hematocrit are stable. No evidence of leukocytosis. Electrolytes unremarkable. Patient is feeling better after Zofran and IV fluids. Case discussed with Dr. Stockton who recommended treatment for leukocyte esterase in urine. She was directed to follow-up with [facility]. Was pt. sent in by a medical professional or institution (, PA, ENGINEERING CONSULTANT, urgent care, hospital, or fci...) When possible be specific @ -No Did you speak to anyone other than the patient for history (EMS, parent, family, police, friend...)? What history was obtained from this source @ -No Did you review nursing and triage notes (agree or disagree)? Why? @ -I reviewed and agree with nursing and triage notes Were old charts reviewed (outside hosp., previous admission, EMS record, old EKG, old radiological studies, urgent care reports/EKG's, fci records)? Report findings @ -No old charts were reviewed Differential Diagnosis (chest pain, altered mental status, abdominal pain women, abdominal pain men, vaginal bleeding, weakness, fever, dyspnea, syncope, headache, dizziness, GI bleed, back pain, seizure, CVA, palpatations, mental health, musculoskeletal)? @ Differential Abdominal Pain Women: Appendicitis, Cholecystitis, diverticulosis, ischemic bowel, pancreatitis, hepatitis, UTI, gastroenteritis, AAA, incarcerated hernia, bowel obstruction, constipation, inflammatory bowel, hepatitis, peptic ulcer disease, splenic infarction, perforated viscus, vulvitis, ovarian torsion, PID, kidney stone, placenta abruption, this is not meant to be an all-inclusive list EKG interpreted by me (3pts min.). @ -n/a X-rays interpreted by me (1pt min.). @ -None done CT interpreted by me (1pt min.). @ -None done U/S interpreted by me (1pt. min.). @ -no What testing was considered but not performed or refused? (CT, X-rays, U/S, labs)? Why? @ -None What meds were considered but not given or refused? Why? @ -None Did you discuss the management of the patient with other professionals (professionals i.e. , PA, ENGINEERING CONSULTANT, lab, RT, psych nurse, child protective services social worker, kitchen stewardess, teacher, president and chief operating officer, case resource manager)? Give summary @ -No Was smoking cessation discussed for >3mins.? @ -No Was critical care preformed (if so, how long)? @ -No Were there social determinants of health that impacted care today? How? (Homelessness, low income, unemployed, alcoholism, drug addiction, transportation, low edu. Level, literacy, decrease access to med. care, group home, rehab)? @ -No Was there de-escalation of care discussed even if they declined (Discuss DNR or withdrawal of care, Hospice)? DNR status @ -No What co-morbidities impacted this encounter? (DM, HTN, Smoking, COPD, CAD, Cancer, CVA, ARF, Chemo, Hep., AIDS, mental health diagnosis, sleep apnea, morbi d obesity)? @ -asthma, anxiety Was patient admitted / discharged? Hospital course, mention meds given and route, prescriptions, significant lab abnormalities, going to OR and other pertinent info. @ -Discharged Undiagnosed new problem with uncertain prognosis? @ -No Drug Therapy requiring intensive monitoring for toxicity (Heparin, Nitro, Insulin, Cardizem)? @ -No Were any procedures done? @ -no Diagnosis/symptom? @ -Abdominal pain, asymptomatic bacteriuria in Acute, or Chronic, or Acute on Chronic? @ -acute Uncomplicated (without systemic symptoms) or Complicated (systemic symptoms)? @ -Uncomplicated Side effects of treatment? @ -No Exacerbation, Progression, or Severe Exacerbation? @ -No Poses a threat to life or bodily function? How? (Chest pain, USA, [place], pneumonia, PE, COPD, DKA, ARF, appy, cholecystitis, CVA, Diverticulitis, Homicidal, Suicidal, threat to staff... and all critical care pts) @ -No - Lab Data Result diagrams: 08/26/22 16:25 08/26/22 16:25 Lab Results 08/26/22 08/26/22 08/26/22 Range/Units 16:25 16:25 16:30 WBC 6.5 (3.8-10.6) k/uL RBC 4.57 (3.80-5.40) m/uL Hgb 13.1 (11.4-16.0) gm/dL Hct 40.7 (34.0-46.0) % MCV 89.1 (80.0-100.0) fL MCH 28.6 (25.0-35.0) pg MCHC 32.1 (31.0-37.0) g/dL RDW 14.7 (11.5-15.5) % Plt Count 155 (150-450) k/uL MPV 10.5 Neutrophils % 57 % Lymphocytes % 33 % Monocytes % 5 % Eosinophils % 1 % Basophils % 1 % Neutrophils # 3.7 (1.3-7.7) k/uL Lymphocytes # 2.1 (1.0-4.8) k/uL Monocytes # 0.3 (0-1.0) k/uL Eosinophils # 0.1 (0-0.7) k/uL Basophils # 0.1 (0-0.2) k/uL Sodium 137 (137-145) mmol/L Potassium 3.6 (3.5-5.1) mmol/L Chloride 104 (98-107) mmol/L Carbon Dioxide 27 (22-30) mmol/L Anion Gap 6 mmol/L BUN 9 (7-17) mg/dL Creatinine 0.45 L (0.52-1.04) mg/dL Est GFR (CKD-EPI)AfAm >90 (>60 ml/min/1.73 sqM) Est GFR (CKD-EPI)NonAf >90 (>60 ml/min/1.73 sqM) Glucose 93 (74-99) mg/dL Calcium 9.3 (8.4-10.2) mg/dL Total Bilirubin 0.6 (0.2-1.3) mg/dL AST 19 (14-36) U/L ALT 16 (4-34) U/L Alkaline Phosphatase 55 (38-126) U/L Lactate Dehydrogenase 266 L (313-618) U/L Total Protein 6.9 (6.3-8.2) g/dL Albumin 4.4 (3.5-5.0) g/dL HCG, Quant 25661.4 mIU/mL Urine Color Yellow Urine Appearance Cloudy H (Clear) Urine pH 6.5 (5.0-8.0) Ur Specific [place] 1.024 (1.001-1.035) Urine Protein Trace H (Negative) Urine Glucose (UA) Negative (Negative) Urine Ketones Negative (Negative) Urine Blood Negative (Negative) Urine Nitrite Negative (Negative) Urine Bilirubin Negative (Negative) Urine Urobilinogen <2.0 (<2.0) mg/dL Ur Leukocyte Esterase Small H (Negative) Urine RBC 1 (0-5) /hpf Urine WBC 2 (0-5) /hpf Ur Squamous Epith Cells 12 H (0-4) /hpf Urine Mucus Many H (None) /hpf Urine HCG, Qual (Not Detectd) 08/26/22 Range/Units 16:30 WBC (3.8-10.6) k/uL RBC (3.80-5.40) m/uL Hgb (11.4-16.0) gm/dL Hct (34.0-46.0) % MCV (80.0-100.0) fL MCH (25.0-35.0) pg MCHC (31.0-37.0) g/dL RDW (11.5-15.5) % Plt Count (150-450) k/uL MPV Neutrophils % % Lymphocytes % % Monocytes % % Eosinophils % % Basophils % % Neutrophils # (1.3-7.7) k/uL Lymphocytes # (1.0-4.8) k/uL Monocytes # (0-1.0) k/uL Eosinophils # (0-0.7) k/uL Basophils # (0-0.2) k/uL Sodium (137-145) mmol/L Potassium (3.5-5.1) mmol/L Chloride (98-107) mmol/L Carbon Dioxide (22-30) mmol/L Anion Gap mmol/L BUN (7-17) mg/dL Creatinine (0.52-1.04) mg/dL Est GFR (CKD-EPI)AfAm (>60 ml/min/1.73 sqM) Est GFR (CKD-EPI)NonAf (>60 ml/min/1.73 sqM) Glucose (74-99) mg/dL Calcium (8.4-10.2) mg/dL Total Bilirubin (0.2-1.3) mg/dL AST (14-36) U/L ALT (4-34) U/L Alkaline Phosphatase (38-126) U/L Lactate Dehydrogenase (313-618) U/L Total Protein (6.3-8.2) g/dL Albumin (3.5-5.0) g/dL HCG, Quant mIU/mL Urine Color Urine Appearance (Clear) Urine pH (5.0-8.0) Ur Specific [place] (1.001-1.035) Urine Protein (Negative) Urine Glucose (UA) (Negative) Urine Ketones (Negative) Urine Blood (Negative) Urine Nitrite (Negative) Urine Bilirubin (Negative) Urine Urobilinogen (<2.0) mg/dL Ur Leukocyte Esterase (Negative) Urine RBC (0-5) /hpf Urine WBC (0-5) /hpf Ur Squamous Epith Cells (0-4) /hpf Urine Mucus (None) /hpf Urine HCG, Qual Detected (Not Detectd) Disposition Clinical Impression: Asymptomatic bacteriuria during Disposition: HOME SELF-CARE Condition: Good Instructions (If sedation given, give patient instructions): Urinary Tract Infection in (ED) Additional Instructions: Take antibiotics as prescribed. Return to the emergency room with any new or concerning symptoms including increased pain or vaginal bleeding. Tylenol as needed for pain. Increase her fluid intake. Follow-up with [facility] Dr. Mcfadden this week. Prescriptions: Cephalexin [Keflex] 500 mg PO Q6HR 7 Days #28 cap Acetaminophen Tab [Tylenol] 650 mg PO Q6H PRN #30 tab PRN Reason: Pain Is patient prescribed a controlled substance at d/c from ED?: No Referrals: Etelvina Johnson MD [Primary Care Provider] - 1-2 days Keke Mcfadden DO [Doctor of Osteopathic Medicine] - 1-2 days Time of Disposition: 19:02
[2022-08-26 16:54] LABS: Basophils # (A) 0.1 k/uL (0-0.2); Basophils % (A) 1 %; Eosinophils # (A) 0.1 k/uL (0-0.7); Eosinophils % (A) 1 %; HCT 40.7 % (34.0-46.0); HGB 13.1 gm/dL (11.4-16.0); Lymphocytes # (A) 2.1 k/uL (1.0-4.8); Lymphocytes % (A) 33 %; MCH 28.6 pg (25.0-35.0); MCHC 32.1 g/dL (31.0-37.0); MCV 89.1 fL (80.0-100.0); Mean Platelet Volume 10.5; Monocytes # (A) 0.3 k/uL (0-1.0); Monocytes % (A) 5 %; Neutrophils # (A) 3.7 k/uL (1.3-7.7); Neutrophils % (A) 57 %; Platelet Count 155 k/uL (150-450); RBC 4.57 m/uL (3.80-5.40); RDW 14.7 % (11.5-15.5); WBC 6.5 k/uL (3.8-10.6)
[2022-08-26 17:09] LABS: ALT 16 U/L (4-34); AST 19 U/L (14-36); African American GFR (CKD) >90 (>60 ml/min/1.73 sqM); Albumin 4.4 g/dL (3.5-5.0); Alkaline Phosphatase 55 U/L (38-126); Anion Gap 6 mmol/L; Blood Urea Nitrogen 9 mg/dL (7-17); Calcium 9.3 mg/dL (8.4-10.2); Carbon Dioxide 27 mmol/L (22-30); Chloride 104 mmol/L (98-107); Glucose 93 mg/dL (74-99); LDH 266 U/L (313-618); Non-African American GFR(CKD) >90 (>60 ml/min/1.73 sqM); Potassium 3.6 mmol/L (3.5-5.1); Sodium 137 mmol/L (137-145); Total Bilirubin 0.6 mg/dL (0.2-1.3); Total Protein 6.9 g/dL (6.3-8.2)
[2022-08-26 17:19] LABS: Appearance,Urine Cloudy (Clear); Bilirubin,Urine Negative (Negative); Blood,Urine Negative (Negative); Color,Urine Yellow; Glucose,Urine (UA) Negative (Negative); Ketones,Urine Negative (Negative); Leukocyte Esterase,Urine Small (Negative); Mucus,Urine Many /hpf; Nitrite,Urine Negative (Negative); PH, Urine 6.5 (5.0-8.0); Protein,Urine Trace (Negative); RBC,Urine 1 /hpf (0-5); Specific Gravity,Urine 1.024 (1.001-1.035); Squamous Epithelial Cell,Urine 12 /hpf (0-4); Urobilinogen,Urine <2.0 mg/dL (<2.0); WBC,Urine 2 /hpf (0-5)
[2022-08-26 17:24] LABS: HCG,Quantitative Serum 12358.4 mIU/mL
--- NOTE | 2022-08-26 18:42 | US ---
EXAMINATION TYPE: Transabdominal DATE OF EXAM: 08/26/2022 6:30 PM COMPARISON: NONE CLINICAL HISTORY: left side abd pain r/oectopic. Left sided pelvic pain EXAM PERFORMED: Transvaginal (TV) and Transabdominal (TA) EXAM MEASUREMENTS: GESTATIONAL AGE / DATING Physician Established: Not yet established ( weeks/ days) EDC: Dates by LMP: 07/21/22 (5 weeks/1 days) EDC: 04/27/23 Dates by First Scan: No previous this is first scan Dates by Current Scan for: (5 weeks/3 days) EDC: 04/25/23 MATERNAL ANATOMY Uterus: 8.6 x 6.4 x 4.4cm Right Ovary: 2.1 x 1.1 x 1.2cm Left Ovary: 3.2 x 2.5 x 1.3cm Post CDS / Adnexa: wnl Presence of free fluid: In cul de sac Presence of corpus luteal cyst: Possible in right ovary measuring 1.7 x 1.7 x 0.9cm Presence of subchorionic bleed: Yes seen adjacent to gest sac measuring 0.9 x 0.9 x 0.4cm GESTATION / SURVEY CRL: 0.22cm (5 weeks/5 days) MSD: 1.05cm (5 weeks/1 days) Yolk Sac (normal less than 6mm): 2.6mm Heart Rate: not seen IUP: Gestational sac with a yolk sac and possible fetus seen in the endometrial area. Date of LMP: 07/21/22 Beta HcG (if available): [id number] . IMPRESSION: There is evidence for early intrauterine and follow-up exam recommended in 10 days to confi rm a living fetus. Fetus too small to show cardiac motion. Small amount of free fluid in the cul-de-sac. No sign of ectopic
[2022-08-26 19:11] VITALS: BP 118/84; PULSE 91
== END 2022-08-26 19:15 | disposition home or self-care (01) ==
LOC: EC 15:57
DX: O23.91 Unspecified genitourinary tract infection in pregnancy, first trimester (principal); R82.71 Bacteriuria; O99.519 Diseases of the respiratory system complicating pregnancy, unspecified trimester; J45.909 Unspecified asthma, uncomplicated; Z3A.01 Less than 8 weeks gestation of pregnancy; Z79.899 Other long term (current) drug therapy; Z88.6 Allergy status to analgesic agent
CPT/HCPCS: 36415; 80053; 83615; 85025; 81001; 81025; 84702; 76801; 76817; 99284; 96374; J2405

== ENCOUNTER → 2022-09-17 | Outpatient (CLI) | payer OTHER ==
--- NOTE | 2022-09-17 09:48 | US ---
EXAMINATION TYPE: Transabdominal DATE OF EXAM: 09/17/2022 9:12 AM COMPARISON: US 09/09 CLINICAL HISTORY: Z36.89Encounter for other spec screening. US follow up for viability and dates EXAM PERFORMED: Transabdominal (TA) EXAM MEASUREMENTS: GESTATIONAL AGE / DATING Physician Established: not established yet Dates by First Scan: (8 weeks/4 days) EDC: 04/25/23 Dates by Current Scan for: (8 weeks/6 days) EDC: 04/23/23 MATERNAL ANATOMY Uterus: 12.1 x 6.3 x 9.6cm Right Ovary: 2.7 x 1.2 x 2.6cm, seen with a 1.4cm cyst Left Ovary: 4.4 x 2.0 x 2.7cm, seen with a 2.3 1.4 x 2.7cm hypoechoic structure within the krystyna Post CDS / Adnexa: wnl Presence of free fluid: none seen Presence of subchorionic bleed: yes, 3.7 x 1.2 x 1.2cm hypoechoic area at the left lateral aspect of the gest sac. GESTATION / SURVEY CRL: 2.2cm (8 weeks/6 days) MSD: wnl Yolk Sac (normal less than 6mm): 4mm Heart Rate: 163 bpm Rhythm: Normal IUP: Viable IUP IMPRESSION: Single viable intrauterine with small subchorionic hemorrhage are difficult to exclude. Hyp oechoic ovarian lesions may reflect corpus luteal cyst.
== END | disposition home or self-care (01) ==
LOC: RADUSWWP 08:53
PROVIDERS: ATTEND Obstetrics & Gynecology
DX: Z36.87 Encounter for antenatal screening for uncertain dates (principal); Z3A.08 8 weeks gestation of pregnancy
CPT/HCPCS: 76801

== ENCOUNTER 2022-12-27 16:30 | Outpatient (CLI) | payer OTHER ==
[2022-12-27 18:11] LABS: Appearance,Urine Turbid (Clear); Bacteria,Urine Occasional /hpf; Bilirubin,Urine Negative (Negative); Blood,Urine Negative (Negative); Color,Urine Yellow; Glucose,Urine (UA) Negative (Negative); Ketones,Urine Negative (Negative); Leukocyte Esterase,Urine Negative (Negative); Mucus,Urine Occasional /hpf; Nitrite,Urine Negative (Negative); Protein,Urine Negative (Negative); Specific Gravity,Urine 1.018 (1.001-1.035); Squamous Epithelial Cell,Urine 5 /hpf (0-4)
--- NOTE | 2022-12-27 21:10 | P.MSEPDOC ---
Presenting Problems - Arrival Data Date of Arrival on Unit: 12/27/22 Time of Arrival on Unit: 16:30 Mode of Transport: Ambulatory - Complaint OB-Reason for Admission/Chief Complaint: Pain Comment: c/o back and belly pain x 2 days Medical History - Information : 4 Para: 2 Number of Living Children: 2 - Gestational Age Gestational Age by CAT (wks/days): 23 Weeks and 0 Days Review of Systems - Review of Systems Constitutional: No problems Breast: No problems ENT: No problems Cardiovascular: No problems Respiratory: No problems Gastrointestinal: No problems Genitourinary: No problems Musculoskeletal: No problems Neurological: No problems Skin: No problems Medical Screen Scoring - Cervical Exam Dilation (cm): 0 Station: -4 Membranes: Intact - Uterine Contractions Intensity: Absent Resting: Soft to palpation - Assessment - Baby A Baseline FHR: 150 Heart Rate - NICHD Category: Category I (Normal) Physician Notification - Physician Notified Physician Notified Date: 12/27/22 Physician Notified Time: 18:15 Physician: Keke Mcfadden Order Received: Yes - Notification Comment Comment: Report of negative UA, orders received to discharge patient home. Maternal Triage Index - Maternal Triage Index Presenting for scheduled procedure w/no complaint: No - Stat/Priority 1 Stat Priority 1: No - Urgent/Priority 2 Urgent Priority 2: No - Prompt/Priority 3 Prompt Priority 3: Yes Criteria Met for Priority 3: Dr Mcfadden on unit. Patient c/o belly and back pain x2 days, denies bleeding or loss of fluid Disposition - Disposition OB Disposition: Discharge to home I agree with the RN Medical Screening Exam: Yes Case reviewed; plan agreed upon as documented in EMR&OBIX.: Yes Diagnosis: RELATED CONDITIONS, UNSPECIFIED, SECOND TRIMESTER
== END 2022-12-27 18:16 | disposition home or self-care (01) ==
LOC: FBPOP 16:30
PROVIDERS: ATTEND Obstetrics & Gynecology
DX: O26.892 Other specified pregnancy related conditions, second trimester (principal); R10.9 Unspecified abdominal pain; Z3A.23 23 weeks gestation of pregnancy; Z88.5 Allergy status to narcotic agent; Z87.891 Personal history of nicotine dependence
CPT/HCPCS: 81001; G0463; 99213

== ENCOUNTER 2023-02-28 09:14 | Outpatient (CLI) | payer OTHER ==
[2023-02-28 12:39] VITALS: BP 101/64; PULSE 77; RESP 16; TEMP 97.2
--- NOTE | 2023-03-01 08:36 | P.MSEPDOC ---
Presenting Problems - Arrival Data Date of Arrival on Unit: 02/28/23 Time of Arrival on Unit: 09:14 Mode of Transport: Ambulatory - Complaint OB-Reason for Admission/Chief Complaint: Possible Onset of Labor Medical History - Information : 4 Para: 3 Term: 3 : 0 Abortions: Spontaneous or Elective: 0 Number of Living Children: 3 - Gestational Age Gestational Age by CAT (wks/days): 31 Weeks and 5 Days - History Complications: Placenta Previa Review of Systems - Review of Systems Constitutional: No problems Breast: No problems ENT: No problems Cardiovascular: No problems Respiratory: No problems Gastrointestinal: No problems Genitourinary: No problems Musculoskeletal: No problems Neurological: No problems Skin: No problems Vital Signs - Temperature Temperature: 97.2 F Temperature Source: Temporal Artery Scan - Pulse Right Brachial Pulse Rate: 77 Pulse Assessment Method: Automatic Cuff - Respirations Respiratory Rate: 16 Oxygen Delivery Method: Room Air - Blood Pressure Right Arm Blood Pressure: 101/64 Blood Pressure Mean: 76 Blood Pressure Source: Automatic Cuff Medical Screen Scoring - Assessment - Baby A Baseline FHR: 140 Heart Rate - NICHD Category: Category I (Normal) NST: Reactive Physician Notification - Physician Notified Physician Notified Date: 02/28/23 Physician Notified Time: 09:45 Physician: Keke Mcfadden Maternal Triage Index - Maternal Triage Index Presenting for scheduled procedure w/no complaint: No - Stat/Priority 1 Stat Priority 1: Yes Provider Notified: Keke Mcfadden Provider Notified Time: 09:45 Criteria Met for Priority 1: 32 weeks c/o contractions Disposition - Disposition OB Disposition: Observe Discharge Date: 02/28/23 Discharge Time: 12:15 I agree with the RN Medical Screening Exam: Yes Case reviewed; plan agreed upon as documented in EMR&OBIX.: Yes Diagnosis: FALSE LABOR BEFORE 37 COMPLETED WEEKS OF GEST, THIRD TRI
== END 2023-02-28 12:15 | disposition home or self-care (01) ==
LOC: FBPOP 09:14
PROVIDERS: ATTEND Obstetrics & Gynecology
DX: O47.03 False labor before 37 completed weeks of gestation, third trimester (principal); Z3A.31 31 weeks gestation of pregnancy; Z88.5 Allergy status to narcotic agent; Z87.891 Personal history of nicotine dependence
CPT/HCPCS: 59025; G0463; 99213

== ENCOUNTER 2023-04-12 06:10 | Inpatient (IN) | payer OTHER ==
--- NOTE | 2023-04-11 14:51 | P.HPOB ---
History of Present Illness H&P Date: 04/11/23 Chief Complaint: Placenta previa with vasa previa This is a 22 y.o. female, 4, para 3 with an estimated date of confinement of 04/27/2023, estimated gestational age of 37-6/7 weeks, who presents for primary section with bilateral partial salpingectomy due to placental previa with vasa previa. She requests permanent sterilization for family planning. has been complicated by placenta previa with vasa previa. She did have some spotting early in the 1st trimester but it did resolve. She also complains of frequent contractions. She was seen by MFM who recommended delivery between 36 and 38 weeks. labs: Hemoglobin-11.8 Blood type-O+ Antibody screen-neg Rubella-equivocal Toxoplasma-neg RPR-NR HIV-NR Hepatitis C-neg Random glucose-69 Appears she did not do 1 hr. GTT Hepatitis B surface antigen-neg [id number] GBS-neg GC/Chlamydia/Trich OB Hx: . History of 3 vaginal deliveries at term. 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 Unemployed. Review of Systems Constitutional: Denies chills, Denies fever Eyes: denies blurred vision, denies pain Ears, nose, mouth and throat: Denies headache, Denies sore throat Cardiovascular: Denies chest pain, Denies shortness of breath Respiratory: Denies cough Gastrointestinal: Reports abdominal pain (frequent cramping), Denies diarrhea, Denies nausea, Denies vomiting Genitourinary: Reports pelvic pain, Reports Musculoskeletal: Reports low back pain Integumentary: Denies pruritus, Denies rash Neurological: Denies numbness, Denies weakness Psychiatric: Reports anxiety, Reports depression Past Medical History Past Medical History: Asthma History of Any Multi-Drug Resistant Organisms: None Reported Additional Past Surgical History / Comment(s): wisdom teeth Past Anesthesia/Blood Transfusion Reactions: No Reported Reaction Additional Past Anesthesia/Blood Transfusion Reaction / Comment(s): none Past Psychological History: Anxiety, Depression Smoking Status: Former smoker, Vaper Past Alcohol Use History: None Reported Past Drug Use History: Marijuana (used early in for nausea) - Past Family History Father Family Medical History: Cancer, Diabetes Mellitus Additional Family Medical History / Comment(s): lung Brother(s) Additional Family Medical History / Comment(s): pulmonary stenosis Sister(s) Family Medical History: No Reported History Additional Family Medical History / Comment(s): down syndrome Medications and Allergies Home Medications Medication Instructions Recorded Confirmed Type No Known Home Medications 04/12/23 04/12/23 History Allergies Allergy/AdvReac Type Severity Reaction Status Date / Time morphine Allergy Anaphylaxis Verified 04/12/23 06:17 Exam Osteopathic Statement: *. No significant issues noted on an osteopathic structural exam other than those noted in the History and Physical/Consult. HEENT: within normal limits Heart: regular rate and rhythm Lungs: clear to auscultation bilaterally Abdomen: , non-tender heart tones: 140's by doppler Cervix: not examined Extremities: neg. Valdez's Results Result Diagrams: 04/12/23 06:30 Assessment and Plan (1) 37 weeks gestation of Current Visit: No Status: Acute Code(s): Z3A.37 - 37 WEEKS GESTATION OF SNOMED Code(s): 78952668 (2) Placenta previa antepartum in third trimester Current Visit: No Status: Acute Code(s): O44.03 - COMPLETE PLACENTA PREVIA NOS OR WITHOUT HEMOR, THIRD TRI SNOMED Code(s): 85988108 (3) Vasa previa Current Visit: No Status: Acute Code(s): O69.4XX0 - LABOR AND DELIVERY COMPLICATED BY VASA PREVIA, UNSP SNOMED Code(s): 21433071 (4) Family planning Current Visit: No Status: Acute Code(s): Z30.09 - ENCOUNTER FOR OT GENERAL CNSL AND ADVICE ON CONTRACEPTION SNOMED Code(s): 494251358 Plan: Proceed with primary low transverse section with bilateral partial salpingectomy. I have discussed the risks, benefits, and alternative therapies for the above- mentioned procedure and for both sedation/anesthesia as well as necessary blood products administration, if indicated, as they pertain to this patient. The patient has indicated her understanding and acceptance of the risks and proced ures discussed.
[2023-04-12] MEDS ORDERED: OXYTOCIN 10 UNIT/ML 1 ML VIAL IM PRN (06:18)
[2023-04-12] MEDS ORDERED: CARBOPROST TROMETHAMINE 250 MCG/ML 1 ML AMP IM PRN (06:18)
[2023-04-12] MEDS ORDERED: OXYTOCIN 30 UNITS/500 ML NS 30 UNIT in SALINE 1 500ML.BAG IV SCH (06:18)
[2023-04-12] MEDS ORDERED: CITRIC ACID-SODIUM CITRATE 15 ML CUP PO ONE (06:18)
[2023-04-12] MEDS ORDERED: LIDOCAINE 1% (10MG/ML) FOR IV START INTRADERMA PRN (06:18)
[2023-04-12] MEDS ORDERED: miSOPROStoL 200 MCG TAB PO PRN (06:18)
[2023-04-12] MEDS ORDERED: METHYLERGONOVINE 0.2 MG/ML 1 ML AMP IM PRN (06:18)
[2023-04-12] MEDS ORDERED: TRANEXAMIC 1,000 MG/100ML-NACL 1,000 MG in EMPTY BAG 1 BAG IV PRN (06:18)
[2023-04-12] MEDS ORDERED: LACTATED RINGERS 1,000 ML IV ONE (06:18)
[2023-04-12] MEDS: LACTATED RINGERS 1,000 ML IV SCH ×2 (06:37→20:06)
[2023-04-12 06:40] LABS: Basophils % (A) 0 %; Eosinophils # (A) 0.1 k/uL (0-0.7); Eosinophils % (A) 1 %; HCT 35.2 % (34.0-46.0); HGB 11.8 gm/dL (11.4-16.0); Lymphocytes # (A) 1.8 k/uL (1.0-4.8); Lymphocytes % (A) 31 %; MCHC 33.4 g/dL (31.0-37.0); Mean Platelet Volume 11.1; Monocytes # (A) 0.3 k/uL (0-1.0); Monocytes % (A) 5 %; Neutrophils # (A) 3.5 k/uL (1.3-7.7); Neutrophils % (A) 61 %; Platelet Count 141 k/uL (150-450); RBC 4.05 m/uL (3.80-5.40); RDW 13.5 % (11.5-15.5); WBC 5.7 k/uL (3.8-10.6)
[2023-04-12] MEDS ORDERED: OXYTOCIN 30 UNITS/500 ML NS BAG IV ONE (07:57)
[2023-04-12] MEDS ORDERED: METHYLERGONOVINE 0.2 MG/ML 1 ML AMP ONE (07:57)
[2023-04-12] MEDS ORDERED: ePHEDrine 50 MG/ML 1 ML VIAL ONE (07:57)
[2023-04-12] MEDS ORDERED: KETOROLAC 15 MG/ML 1 ML VIAL ONE (07:57)
[2023-04-12] MEDS ORDERED: fentaNYL (PF) 50 MCG/ML 2 ML AMP ONE (07:57)
[2023-04-12] MEDS ORDERED: NALBUPHINE 10 MG/ML (10 ML MDV) ONE (07:57)
[2023-04-12] MEDS ORDERED: ONDANSETRON 4 MG/2 ML VIAL ONE (07:57)
[2023-04-12] MEDS ORDERED: MORPHINE SULFATE (PF) 0.3 MG/0.3 ML SYR ONE (07:57)
[2023-04-12] MEDS ORDERED: ZOLPIDEM 5 MG TAB PO PRN (08:16)
[2023-04-12] MEDS ORDERED: HYDROmorphone 0.5 MG/0.5 ML SYRINGE IVP PRN ×2 (08:16→08:47)
[2023-04-12] MEDS ORDERED: METOCLOPRAMIDE 5 MG/ML 2 ML VIAL IVP PRN (08:16)
[2023-04-12] MEDS ORDERED: NALOXONE 0.4 MG/ML 1 ML VIAL IV PRN ×2 (08:16→08:47)
[2023-04-12] MEDS ORDERED: ONDANSETRON 4 MG/2 ML VIAL IVP PRN ×2 (08:16→08:47)
[2023-04-12] MEDS ORDERED: HYDROmorphone 1 MG/ML 1 ML SYRINGE IVP PRN (08:16)
[2023-04-12] MEDS ORDERED: diphenhydrAMINE 50 MG CAP PO PRN (08:16)
[2023-04-12] MEDS ORDERED: diphenhydrAMINE 50 MG/ML 1 ML VIAL IVP PRN ×2 (08:16)
[2023-04-12] MEDS ORDERED: LANOLIN CREAM 5 GM TUBE TOPICAL PRN (08:16)
[2023-04-12] MEDS ORDERED: diphenhydrAMINE 25 MG CAP PO PRN (08:16)
[2023-04-12] MEDS ORDERED: SIMETHICONE 80 MG CHEWABLE PO PRN (08:16)
[2023-04-12] MEDS ORDERED: NALBUPHINE 10 MG/ML (10 ML MDV) IV PRN (08:47)
--- NOTE | 2023-04-12 08:48 | P.OP ---
Date of Procedure: 04/12/23 Preoperative Diagnosis: 1. Intrauterine at 37-6/7 weeks. 2. Placenta previa with vasa previa. 3. Family-planning. Postoperative Diagnosis: Same Procedure(s) Performed: Primary low transverse section with bilateral partial salpingectomy Anesthesia: spinal (Duramorph) Surgeon: Keke Mcfadden Talent Acquisition Partner #1: Silas Klein Estimated Blood Loss (ml): 1,200 Pathology: other (Placenta, portions of right and left fallopian tubes) Condition: stable Disposition: floor Indications for Procedure: This is a 22-year-old female 4 para 3 at 37-6/7 weeks who presents for scheduled primary section with bilateral partial salpingectomy due to placenta previa with is a previa and family-planning. I have discussed the risks, benefits, and alternative therapies for the above- mentioned procedure and for both sedation/anesthesia as well as necessary blood products administration, if indicated, as they pertain to this patient. The patient has indicated her understanding and acceptance of the risks and procedures discussed. Operative Findings: A viable female infant is noted in the transverse lie with head to the left and scores of 8 at 1 minute and 9 at 5 minutes and weight of 7 lbs. 1 oz. Placenta was slightly adherent and did wrap around from the right to the left side of the abdomen anteriorly. Normal uterus tubes and ovaries are noted. Description of Procedure: The patient is taken to the operating room where she is placed in the dorsal supine position with leftward tilt after spinal Duramorph anesthesia is given. She is prepped and draped in the normal sterile fashion. Skin was tested and found to be adequately anesthetized. A Pfannenstiel skin incision was made with a scalpel. A second knife was used to carry the incision down to the underlying layer of fascia. The fascia was nicked in the midline with a scalpel and then extended laterally bilaterally with Davidson scissors. The anterior lip of the fascia was grasped with 2 Clau clamps and then dissected off the underlying rectus muscle in the midline with Davidson scissors. The inferior aspect of the fascial incision was grasped with 2 Clau clamps and dissected off the underly ing rectus muscle and the midline with Davidson scissors. Next the peritoneum layer was tented up with 2 hemostats and then entered sharply with the scalpel. The incision is extended superiorly and inferiorly with Metzenbaum scissors. Next a DeLee retractor is placed. There is noted the a lot of vasculature noted on the lower uterine segment. The vesicouterine peritoneum is entered sharply with M etzenbaum scissors and extended laterally bilaterally with Metzenbaum scissors and then the bladder flap is pushed inferiorly. The lower uterine segment is incised in transverse fashion with the scalpel and then bluntly entered with a hemostat. Clear fluid is noted. The incision was then extended laterally bilaterally with 2 fingers. Next the 's head is noted to be in the maternal left side of the abdomen and it is delivered through the incision. Nose and mouth are bulb suctioned. The remainder of the infant is easily delivered and placed on mother's abdomen. Cord is clamped and cut. Infant is taken to warmer by nursing staff. Uterine fundus is gently massaged and placenta is delivered manually. Uterus did appear to be slightly adherent especially in the lower uterine segment. Uterus is exteriorized and cleared of all clots and debris. She was given oxytocin and also 1 dose of Methergine 0.2 mg IM. Uterine incision is closed with 0 Vicryl suture in a running locked f ashion. A second layer of 0 Vicryl suture is used in a running fashion for hemostasis. Once adequate hemostasis as assured, the vesicouterine peritoneum is reapproximated with 2-0 Vicryl suture in a running fashion. Next attention is turned to the tubes. The right fallopian tube is grasped in the midportion with a hemostat and then the mesosalpinx is entered with Bovie cautery. 0 Vicryl suture is tied 2 times around both the proximal and distal portion of the tube. The knuckle of tube was then removed with Metzenbaum scissors. Next the tubes are cauterized with Bovie cautery. The same procedure is carried out on the left fallopian tube. Posterior cul-de-sac is suctioned of all clots and debris. Uterus is returned to the abdomen. Incision is noted to be hemostatic. Both tubal sites are noted to be hemostatic. Peritoneal layer is closed with 0 Vicryl suture in a running fashion. Muscle layer is reapproximated with 0 Vicryl suture in interrupted fashion. Fascia layer is then closed with 0 PDS suture with 2 sutures meeting in the midline and the knots buried in either side and in the midline. The subcutaneous tissue was then closed with 2-0 Vicryl suture. Skin layer was then closed with manda. All sponge and needle counts are correct. The patient is taken to recovery room in stable condition.
[2023-04-12] MEDS: ACETAMINOPHEN IV (For NPO) 1,000 MG in EMPTY BAG 1 BAG IVPB SCH ×2 (12:45→20:10)
[2023-04-12] MEDS: KETOROLAC 15 MG/ML 1 ML VIAL IVP SCH (14:34)
[2023-04-12] MEDS: ACETAMINOPHEN TAB 500 MG TAB PO SCH ×2 (15:30→20:05)
[2023-04-12] MEDS: IBUPROFEN 600 MG TAB PO SCH ×2 (15:31→20:40)
[2023-04-12] MEDS: SENNOSIDES-DOCUSATE SODIUM 1 EACH TAB PO SCH (20:18)
[2023-04-13] MEDS: KETOROLAC 15 MG/ML 1 ML VIAL IVP SCH ×2 (00:20→07:30)
[2023-04-13] MEDS: LACTATED RINGERS 1,000 ML IV SCH (00:28)
[2023-04-13] MEDS: IBUPROFEN 600 MG TAB PO SCH ×3 (03:52→18:44)
[2023-04-13] MEDS: ACETAMINOPHEN TAB 500 MG TAB PO SCH ×4 (04:07→21:47)
--- NOTE | 2023-04-13 05:57 | P.PN ---
Progress Note - Text Progress Note Date: 04/13/23 POD 1 C Section with spinal duramorph Doing well, she began feeling some soreness relieved with PRN medications. She has been able to stand and micturate. Mild pruritis. Lower ext strength has returned to normal. No complications noted. PRN medications as needed. Anesthesia sign off, call if needed. Cali Haynes MD
[2023-04-13] MEDS: SENNOSIDES-DOCUSATE SODIUM 1 EACH TAB PO SCH ×2 (07:31→20:16)
[2023-04-13 07:49] LABS: Basophils % (A) 0 %; Eosinophils % (A) 0 %; HCT 27.2 % (34.0-46.0); Lymphocytes # (A) 1.4 k/uL (1.0-4.8); Lymphocytes % (A) 21 %; MCH 29.9 pg (25.0-35.0); MCHC 33.7 g/dL (31.0-37.0); MCV 88.9 fL (80.0-100.0); Mean Platelet Volume 11.1; Monocytes # (A) 0.3 k/uL (0-1.0); Monocytes % (A) 4 %; Neutrophils # (A) 4.7 k/uL (1.3-7.7); Neutrophils % (A) 72 %; Platelet Count 102 k/uL (150-450); RBC 3.06 m/uL (3.80-5.40); RDW 13.9 % (11.5-15.5); WBC 6.4 k/uL (3.8-10.6)
[2023-04-13 07:53] LABS: HGB 9.1 gm/dL (11.4-16.0)
--- NOTE | 2023-04-13 09:03 | P.PNOBGPC ---
Subjective - Subjective Principal diagnosis: status post primary section with tubal postoperative day #1 Interval history: patient is doing well. She is passing some flatus. Lochia has been minimal. She is breast and bottlefeeding. Pain is fairly well controlled. Patient reports: Reports appetite normal, Reports voiding normally, Reports pain well controlled, Reports ambulating normally : doing well Objective - Vital Signs Latest vital signs: Vital Signs Temp Pulse Resp BP Pulse Ox 04/13/23 08:00 98.3 F 70 16 115/70 10 L 04/13/23 04:20 16 98 04/13/23 04:00 97.5 F L 53 L 16 101/64 98 04/13/23 03:00 16 04/13/23 00:43 16 97 04/13/23 00:00 98.0 F 57 L 16 93/59 97 04/12/23 22:54 16 04/12/23 20:40 16 98 04/12/23 20:00 98.0 F 58 L 16 93/53 98 04/12/23 19:00 15 04/12/23 15:42 97.6 F 55 L 15 100/56 98 04/12/23 15:41 15 04/12/23 13:47 98 04/12/23 11:47 15 04/12/23 10:50 53 L 15 96/53 04/12/23 10:20 53 L 15 99/56 04/12/23 09:50 96 F L 58 L 15 98/53 99 04/12/23 09:47 16 100 04/12/23 09:35 52 L 15 103/58 100 04/12/23 09:20 53 L 15 101/54 100 04/12/23 09:05 54 L 15 127/54 97 Intake and Output 04/12/23 04/13/23 04/13/23 22:59 06:59 14:59 Output Total 1250 Balance -1250 Output: Urine 1250 Uretheral (Loera) 200 Other: # Voids 1 2 1 - Exam Extremities: Present: normal. Absent: tenderness Abdomen: Present: normal appearance, soft. Absent: distention, tenderness Incision: Present: normal, dry, intact. Absent: erythematous Uterus: Present: normal, firm. Absent: tenderness - Labs Labs: Abnormal Lab Results - Last 24 Hours (Table) 10/25/23 Range/Units 06:50 RBC 3.06 L (3.80-5.40) m/uL Hgb 9.1 L D (11.4-16.0) gm/dL Hct 27.2 L (34.0-46.0) % Plt Count 102 L (150-450) k/uL Assessment and Plan Assessment: status post primary low transverse section with bilateral partial salpingectomy postoperative day #1 (1) 37 weeks gestation of Current Visit: No Status: Acute Code(s): Z3A.37 - 37 WEEKS GESTATION OF SNOMED Code(s): 29853907 (2) Placenta previa antepartum in third trimester Current Visit: No Status: Acute Code(s): O44.03 - COMPLETE PLACENTA PREVIA NOS OR WITHOUT HEMOR, THIRD TRI SNOMED Code(s): 06912791 (3) Vasa previa Current Visit: No Status: Acute Code(s): O69.4XX0 - LABOR AND DELIVERY COMPLICATED BY VASA PREVIA, UNSP SNOMED Code(s): 49265304 (4) Family planning Current Visit: No Status: Acute Code(s): Z30.09 - ENCOUNTER FOR OTH GENERAL CNSL AND ADVICE ON CONTRACEPTION SNOMED Code(s): 096601001 Plan: continue with postoperative and care today. Anticipate possible discharge home tomorrow. Patient is encouraged to ambulate and keep up with her oral pain medications.
[2023-04-13 23:40] VITALS: TEMP 98.6
[2023-04-14] MEDS: IBUPROFEN 600 MG TAB PO SCH ×2 (00:41→08:20)
[2023-04-14] MEDS: ACETAMINOPHEN TAB 500 MG TAB PO SCH (03:41)
[2023-04-14 07:45] VITALS: BP 116/74; PULSE 70; RESP 17
[2023-04-14] MEDS: SENNOSIDES-DOCUSATE SODIUM 1 EACH TAB PO SCH (08:23)
--- NOTE | 2023-04-14 08:49 | P.DS ---
Providers Date of admission: 04/12/23 06:10 Expected date of discharge: 04/14/23 Attending physician: Keke Mcfadden Primary care physician: Stated None - Discharge Diagnosis(es) (1) 37 weeks gestation of Current Visit: No Status: Acute (2) Placenta previa antepartum in third trimester Current Visit: No Status: Acute (3) Vasa previa Current Visit: No Status: Acute (4) Family planning Current Visit: No Status: Acute Hospital Course: This is a 22-year-old female 4 para 3 at 37-6/7 weeks who presented for primary section with tubal ligation due to placenta previa and family planning. She underwent a primary low transverse section with bilateral partial salpingectomy on 04/12/2023 and delivered a viable female infant with scores of 8 at 1 minute and 9 at 5 minutes and weight of 7 lbs. 1 oz. Infant was noted to be in a transverse lie. Her postoperative and courses have been uncomplicated. Lochia has been minimal. Pain is been fairly well-controlled with her pain medications. She is passing flatus but no bowel movement yet. She is breast and bottlefeeding. Vital signs are s table. Abdomen is soft with fundus firm and nontender. Extremities show negative Homans. Impression is status post primary low transverse section with bilateral partial salpingectomy postoperative day #2. Plan is to discharge home today. Routine postoperative and instructions are given. She will be given a prescription for ibuprofen and oxycodone. She was counseled regarding opioid use and has signed a consent form. She is encouraged to continue taking stool softeners. She is advised to follow up in the office in 1 week for a postoperative check and in 6 weeks for check. Grandfield will be removed and Steri-Strips placed prior to discharge. She is advised to call the office if she has any further questions or concerns prior to her appointment time. Procedures: Primary low transverse section with bilateral partial salpingectomy on 04/12/2023 Patient Condition at Discharge: Stable Plan - Discharge Summary New Discharge Prescriptions: New Acetaminophen Tab [Tylenol] 1,000 mg PO Q6H tab Ibuprofen [Motrin] 600 mg PO Q6H #60 tab oxyCODONE HCL [OxyIR] 5 mg PO Q4HR PRN #12 tab PRN Reason: Pain Scale 4 - 6 Discharge Medication List Acetaminophen Tab [Tylenol] 1,000 mg PO Q6H tab 04/14/23 [Rx] Ibuprofen [Motrin] 600 mg PO Q6H #60 tab 04/14/23 [Rx] oxyCODONE HCL [OxyIR] 5 mg PO Q4HR PRN #12 tab 04/14/23 [Rx] Follow up Appointment(s)/Referral(s): Keke Mcfadden DO [Doctor of Osteopathic Medicine] - 05/25/23 3:30 pm (Post Op Appointment 04-25-2023 at 1:30pm) Activity/Diet/Wound Care/Special Instructions: Instructions 1. Do not begin any exercise program for 3 weeks. 2. Do not resume sexual relations for 3 weeks or longer if uncomfortable. 3. You may take tub baths or showers at any time. 4. You may use tampons if desired after 3 weeks. 5. Keep the area of episiotomy (stitches) clean and dry. 6. If you are not nursing, wear a good fitting, supportive bra during the day and limit fluid intake for at least 1 week to prevent breast engorgement. 7. Call the office, [phone], within the next week to make appointment for your 6 week checkup if it has not already been made. 8. Report any of the following occurrences to the doctor promptly: a. Heavy, excessive bleeding b. Chills, fever c. Burning or frequency of urination d. Pain or redness and breasts if nursing e. Increasing pain or swelling in episiotomy (stitches). In addition to the above instructions, the following additional should be followed: 1. No heavy lifting or straining (exercising) until after 6 week checkup. 2. Keep abdominal incision clean and dry: You may wear a dressing if more comfortable. 3. Make office appointment for 10 days after going home or as instructed by her doctor. Discharge Disposition: HOME SELF-CARE
== END 2023-04-14 11:22 | disposition home or self-care (01) | DRG 539 ==
LOC: 4FBP 06:10
PROVIDERS: ADMIT Obstetrics & Gynecology; ATTEND Obstetrics & Gynecology
PROC: 0UB70ZZ Excision of Bilateral Fallopian Tubes, Open Approach (ICD-10-PCS; 2023-04-12)
PROC: 10D00Z1 Extraction of Products of Conception, Low, Open Approach (ICD-10-PCS; principal; 2023-04-12 08:00)
DX: O32.2XX0 Maternal care for transverse and oblique lie, not applicable or unspecified (principal); F32.A Depression, unspecified; F41.9 Anxiety disorder, unspecified; J45.909 Unspecified asthma, uncomplicated; L29.9 Pruritus, unspecified; O69.4XX0 Labor and delivery complicated by vasa previa, not applicable or unspecified; O99.52 Diseases of the respiratory system complicating childbirth; O99.73 Diseases of the skin and subcutaneous tissue complicating the puerperium; O44.03 Complete placenta previa NOS or without hemorrhage, third trimester; O99.344 Other mental disorders complicating childbirth; Z37.0 Single live birth; Z3A.37 37 weeks gestation of pregnancy; Z87.891 Personal history of nicotine dependence
CPT/HCPCS: 83036; 85025; 86850; 86900; 86901; 88302; 88307